=== PATIENT | male | born 1985 | race Hispanic/Latino ===

== ENCOUNTER 2017-10-06 19:24 | Emergency (ER) | payer MEDICAID ==
[2017-10-06] MEDS ORDERED: LIDOCAINE 1% 20 ML MDV ONE (20:30)
[2017-10-06] MEDS ORDERED: DERMABOND SKIN ADHESIVE TOP ONE ×2 (20:30→21:13)
--- NOTE | 2017-10-06 20:52 | RAD REPORT ---
EXAM DESCRIPTION: RAD - Ankle Left 3 View - 10/06/2017 8:41 pm CLINICAL HISTORY: Trip and fall, ankle pain new COMPARISON: None. FINDINGS: No fracture, dislocation or periosteal reaction. No joint effusion seen. No joint space na rrowing. No significant soft tissue swelling. IMPRESSION: Negative left ankle for fracture or other acute finding.
--- NOTE | 2017-10-06 21:22 | EDPHYS ---
Physician Documentation [facility] Name: Chidi Allen Age: 31 yrs Sex: Male : 1985 Arrival Date: 10/06/2017 Time: 19:26 Bed 5 Private MD: ED Physician John Valdovinos HPI: 10/06 21:12 This 31 yrs old Male presents to ER via Wheelchair with complaints of ps1 Laceration. 21:12 The patient has a laceration related to: falling occurred outdoors, The injury was was ps1 out fishing and fell into oyster and barnacles. Has multiple lacerations to lower extremities. notable 3cm laceration to lateral aspect of left tibia. Associated signs and symptoms: Pertinent positives: pain with ambulating and WB left right foot. Historical: - Allergies: 19:56 PENICILLINS; lp1 - Home Meds: 19:56 Adderall XR Oral [Active]; Allopurinol Oral [Active]; Alprazolam Oral [Active]; lp1 Colchicine Oral [Active]; Indomethacin Oral [Active]; - PMHx: 19:56 ADD/ADHD; Anxiety; Gout; lp1 - PSHx: 19:56 None; lp1 - Immunization history:: Adult Immunizations up to date, Last tetanus immunization: < 5 years ago. - Social history:: Smoking status: Patient uses tobacco products, smokes one-half pack cigarettes per day. ROS: 21:12 Constitutional: Negative for fever, chills, and weight loss, Eyes: Negative for injury, ps1 pain, redness, and discharge, Cardiovascular: Negative for chest pain, palpitations, and edema, Respiratory: Negative for shortness of breath, cough, wheezing, and pleuritic chest pain, Abdomen/GI: Negative for abdominal pain, nausea, vomiting, diarrhea, and constipation, Back: Negative for injury and pain. 21:12 MS/extremity: Positive for laceration, pain, swelling. Exam: 21:12 Constitutional: This is a well developed, well nourished patient who is awake, alert, ps1 and in no acute distress. Head/Face: Normocephalic, atraumatic. Eyes: Pupils equal round and reactive to light, extra-ocular motions intact. Lids and lashes normal. Conjunctiva and sclera are non-icteric and not injected. Chest/axilla: Normal chest wall appearance and motion. Nontender with no deformity. No lesions are appreciated. Cardiovascular: Regular rate and rhythm. No gallops, murmurs, or rubs. Normal PMI, no JVD. No pulse deficits. Respiratory: Lungs have equal breath sounds bilaterally, clear to auscultation and percussion. No rales, rhonchi or wheezes noted. No increased work of breathing, no retractions or nasal flaring. Abdomen/GI: Soft, non-tender, with normal bowel sounds. No distension or tympany. No guarding or rebound. No evidence of tenderness throughout. Skin: Warm, dry with normal turgor. Normal color with no rashes, no lesions, and no evidence of cellulitis. 21:12 Musculoskeletal/extremity: Extremities: grossly normal except: noted in the right leg: laceration, pain, tenderness, noted in the left heel: abrasion, laceration. Vital Signs: 19:56 BP 126 / 83; Pulse 86; Resp 18; Temp 99(TE); Pulse Ox 97% on R/A; Weight 122.92 kg; lp1 Height 5 ft. 10 in. (177.80 cm); Pain 8/10; 19:56 Body Mass Index 38.88 (122.92 kg, 177.80 cm) lp1 Laceration: 21:12 Wound Repair of 3cm ( 1.2in ) subcutaneous laceration to right leg. Irregularly ps1 shaped.. Skin/tissue flap noted.. Distal neuro/vascular/tendon intact. Anesthesia: Local anesthetic administered with 2 mls of 1% lidocaine. Wound prep: Moderate cleansing with hibiclenz by nurse, Wound irrigation with saline, Wound explored minimally, Copious irrigation. Skin closed with 4 5-0 Prolene using simple sutures and sterile technique. Dressed with Bacitracin, 4x4's, tube gauze. Patient tolerated well. MDM: 20:27 Patient medically screened. ps1 21:12 Data reviewed: vital signs, nurses notes. ED course: doxy for marine coverage. 7 days ps1 for suture removal. . 21:22 ED course: laceration repaired. Normal barr test. Achillies appears intact. WBAT. ps1 Motrin per patient request. . 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 Exp: la1 10/20/2019. Lot #: [id number]. } Route: IM; Site: right deltoid; 21:35 Follow up: Response: No adverse reaction la1 21:35 Drug: Doxycycline 100 mg Route: PO; la1 21:35 Follow up: Response: Medication administered at discharge. la1 Disposition: 10/06/17 21:21 Discharged to Home. Impression: Laceration of right leg. Multiple abrasions. Fall in marine environment. . - Condition is Stable. - Discharge Instructions: Laceration Care, Adult, [id number]. - Prescriptions for Doxycycline Hyclate 100 mg Oral Tablet - take 1 tablet by ORAL route every 12 hours; 20 tablet. - Medication Reconciliation Form, Thank You Letter, Antibiotic Education, Prescription Opioid Use form. - Follow up: Private Physician; When: 7 - 10 days; Reason: Recheck today's complaints, Continuance of care, Staple/Suture removal, Re-evaluation by your physician. Follow up: Emergency Department; When: As needed; Reason: Fever > 102 F, Worsening of condition. - Problem is new. - Symptoms have improved. Signatures: Dispatcher [employer] [facility] Patria Allen RN RN lp1 Daniele Hawthorne RN RN la1 John Valdovinos MD MD ps1
--- NOTE | 2017-10-06 21:22 | ER ---
Nurse's Notes [facility] Emergency [facility] Name: Chidi Allen Age: 31 yrs Sex: Male : 1985 Arrival Date: 10/06/2017 Time: 19:26 Bed 5 Private MD: Diagnosis: Laceration of right leg. Multiple abrasions. Fall in marine environment. Presentation: 10/06 19:53 Presenting complaint: Patient states: [place], tripped and fell in an lp1 oyster reef, small lacerations to bilateral feet, unable to bear weight to left ankle, large laceration to right lateral lower leg, bleeding controlled. Transition of care: patient was not received from another setting of care. Complicating Factors: There are no complicating factors for this patient. Onset of symptoms was October 06, 2017 at 19:00. Initial Sepsis Screen: Does the patient meet any 2 criteria? No. Patient's initial sepsis screen is negative. Does the patient have a suspected source of infection? No. Patient's initial sepsis screen is negative. Note bleeding controlled during triage. Care prior to arrival: None. 19:53 Method Of Arrival: Wheelchair lp1 19:53 Acuity: CHERRIE 4 lp1 Historical: - Allergies: 19:56 PENICILLINS; lp1 - Home Meds: 19:56 Adderall XR Oral [Active]; Allopurinol Oral [Active]; Alprazolam Oral [Active]; lp1 Colchicine Oral [Active]; Indomethacin Oral [Active]; - PMHx: 19:56 ADD/ADHD; Anxiety; Gout; lp1 - PSHx: 19:56 None; lp1 - Immunization history:: Adult Immunizations up to date, Last tetanus immunization: < 5 years ago. - Social history:: Smoking status: Patient uses tobacco products, smokes one-half pack cigarettes per day. Screenin:23 Abuse screen: Denies threats or abuse. Nutritional screening: No deficits noted. la1 Tuberculosis screening: No symptoms or risk factors identified. Fall Risk None identified. Assessment: 20:22 Reassessment: abrasions and lacerations noted to rolly feet. laceration to back of left la1 heel and pressure dressing applied to laceration to RLE. General: Appears in no apparent distress. Behavior is calm, cooperative. Pain: Complains of pain in right foot and left foot. Neuro: Level of Consciousness is awake, alert, obeys commands, Oriented to person, place, time, situation. Cardiovascular: Capillary refill < 3 seconds Patient's skin is warm and dry. Respiratory: Airway is patent Respiratory effort is even, unlabored, Respiratory pattern is regular, symmetrical. GI: No signs and/or symptoms were reported involving the gastrointestinal system. : No signs and/or symptoms were reported regarding the genitourinary system. Musculoskeletal: Circulation, motion, and sensation intact. Capillary refill < 3 seconds, is brisk, in bilateral fingers. 20:59 Reassessment: Wounds all cleaned extensively with saline and chlorhexidine. la1 21:35 Injury Description: Laceration sustained to right leg is contaminated, jagged, 0.5 to la1 2.5 cm long, not bleeding. Vital Signs: 19:56 BP 126 / 83; Pulse 86; Resp 18; Temp 99(TE); Pulse Ox 97% on R/A; Weight 122.92 kg; lp1 Height 5 ft. 10 in. (177.80 cm); Pain 8/10; 19:56 Body Mass Index 38.88 (122.92 kg, 177.80 cm) lp1 ED Course: 19:26 Patient arrived in ED. ds1 19:55 Triage completed. lp1 19:55 Arm band placed on left wrist. lp1 20:20 John Valdovinos MD is Attending Physician. ps1 20:20 Daniele Hawthorne, ELIZ is Primary Nurse. la1 20:24 Call light in reach. la1 20:39 X-ray completed. Portable x-ray completed in exam room. Patient tolerated procedure kc2 well. 20:40 Ankle Left 3 View XRAY In Process Unspecified. EDMS 21:35 No provider procedures requiring assistance completed. Patient did not have IV access la1 during this emergency room visit. 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 Exp: la1 10/20/2019. Lot #: [id number]. } Route: IM; Site: right deltoid; 21:35 Follow up: Response: No adverse reaction la1 21:35 Drug: Doxycycline 100 mg Route: PO; la1 21:35 Follow up: Response: Medication administered at discharge. la1 Outcome: 21:21 Discharge ordered by . ps1 21:36 Discharged to home ambulatory. la1 21:36 Condition: stable 21:36 Discharge instructions given to patient, Instructed on discharge instructions, follow up and referral plans. Demonstrated understanding of instructions, follow-up care, medications, Prescriptions given X 1. 21:37 Patient left the ED. la1 Signatures: Dispatcher [employer] [facility] Venessa Castillo ds1 Patria Allen RN RN lp1 Daniele Hawthorne RN RN la1 Millie Huerta 2 John Valdovinos MD MD ps1 Corrections: (The following items were deleted from the chart) 19:58 19:56 Pulse 86bpm; Resp 18bpm; Pulse Ox 97% RA; Temp 99F Temporal; 122.92 kg; Height 5 lp1 ft. 10 in.; BMI: 38.8; Pain 8/10; lp1
[2017-10-06] MEDS ORDERED: DOXYCYCLINE 100 MG CAP PO ONE (21:30)
[2017-10-06 22:02] VITALS: BP 126/83; TEMP 99; O2SAT 97
== END 2017-10-06 21:37 | disposition home or self-care (01) ==
LOC: ER 19:24
PROC: 0JQN0ZZ Repair Right Lower Leg Subcutaneous Tissue and Fascia, Open Approach (ICD-10-PCS; principal; 2017-10-06)
DX: S81.811A Laceration without foreign body, right lower leg, initial encounter (principal); W17.89XA Other fall from one level to another, initial encounter; Y93.89 Activity, other specified; Y92.89 Other specified places as the place of occurrence of the external cause; F90.9 Attention-deficit hyperactivity disorder, unspecified type; F17.210 Nicotine dependence, cigarettes, uncomplicated; Z88.0 Allergy status to penicillin
CPT/HCPCS: 99283

== ENCOUNTER 2017-10-08 12:53 | Emergency (ER) | payer MEDICAID ==
--- NOTE | 2017-10-08 13:44 | EDPHYS ---
Physician Documentation [facility] Name: hCidi Allen Age: 31 yrs Sex: Male : 1985 Arrival Date: 10/08/2017 Time: 12:56 Bed 23 Private MD: ED Physician Omid Chen HPI: 10/08 13:38 This 31 yrs old Male presents to ER via Wheelchair with complaints of Infected jr8 Wound. 13:38 the patient presents with a swollen area of the left foot. Description: The affected jr8 area is moderate sized, erythematous, swollen, warm. Onset: The symptoms/episode began/occurred acutely, yesterday. Possible cause(s): marine life cut. Associated signs and symptoms: The patient has no apparent associated signs or symptoms. Modifying factors: the symptoms are alleviated by nothing, the symptoms are aggravated by squeezing the lesion and expressing the contents, touching. Severity of symptoms: At their worst the symptoms were moderate, in the emergency department the symptoms are unchanged. The patient has not experienced similar symptoms in the past. The patient has been recently seen by a physician:. Patient was seen here a couple of days ago for cuts on legs and feet from oyster beds. Stated that he was unable to fill antibiotics due to insurance authorization. Told pharmacy to call us but that they wouldn't. Came to ED today because foot is now swelling and is red . Historical: - Allergies: 13:22 PENICILLINS; hb - Home Meds: 13:22 Adderall XR Oral [Active]; Allopurinol Oral [Active]; Alprazolam Oral [Active]; hb Colchicine Oral [Active]; Indomethacin Oral [Active]; - PMHx: 13:22 ADD/ADHD; Anxiety; Gout; hb - PSHx: 13:22 None; hb - Immunization history:: Adult Immunizations up to date. - Social history:: Smoking status: Patient/guardian denies using tobacco. ROS: 13:38 Eyes: Negative for injury, pain, redness, and discharge, ENT: Negative for injury, jr8 pain, and discharge, Neck: Negative for injury, pain, and swelling, Cardiovascular: Negative for chest pain, palpitations, and edema, Respiratory: Negative for shortness of breath, cough, wheezing, and pleuritic chest pain, Abdomen/GI: Negative for abdominal pain, nausea, vomiting, diarrhea, and constipation, Back: Negative for injury and pain, MS/Extremity: Negative for injury and deformity, Neuro: Negative for headache, weakness, numbness, tingling, and seizure. 13:38 Skin: Positive for erythema, swelling, of the left foot. Exam: 13:38 Eyes: Pupils equal round and reactive to light, extra-ocular motions intact. Lids and jr8 lashes normal. Conjunctiva and sclera are non-icteric and not injected. Cornea within normal limits. Periorbital areas with no swelling, redness, or edema. ENT: Nares patent. No nasal discharge, no septal abnormalities noted. Tympanic membranes are normal and external auditory canals are clear. Oropharynx with no redness, swelling, or masses, exudates, or evidence of obstruction, uvula midline. Mucous membranes moist. Neck: Trachea midline, no thyromegaly or masses palpated, and no cervical lymphadenopathy. Supple, full range of motion without nuchal rigidity, or vertebral point tenderness. No Meningismus. Cardiovascular: Regular rate and rhythm with a normal S1 and S2. No gallops, murmurs, or rubs. Normal PMI, no JVD. No pulse deficits. Respiratory: Lungs have equal breath sounds bilaterally, clear to auscultation and percussion. No rales, rhonchi or wheezes noted. No increased work of breathing, no retractions or nasal flaring. Abdomen/GI: Soft, non-tender, with normal bowel sounds. No distension or tympany. No guarding or rebound. No evidence of tenderness throughout. Back: No spinal tenderness. No costovertebral tenderness. Full range of motion. MS/ Extremity: Pulses equal, no cyanosis. Neurovascular intact. Full, normal range of motion. Neuro: Awake and alert, GCS 15, oriented to person, place, time, and situation. Cranial nerves II-XII grossly intact. Motor strength 5/5 in all extremities. Sensory grossly intact. Cerebellar exam normal. Normal gait. 13:38 Skin: Patient has swelling and erythema to medial aspect left foot from mid foot down through first digit. Serous drainage of wound noted. Mild tenderness to palpation. Other wounds intact and without erythema . Vital Signs: 13:20 BP 128 / 80; Pulse 81; Resp 16; Temp 97.9; Pulse Ox 97% on R/A; Weight 122.92 kg; hb Height 5 ft. 10 in. (177.80 cm); Pain 4/10; 13:54 BP 116 / 69; Pulse 80; Resp 20; Temp 98.6; Pulse Ox 95% ; Pain 2/10; tt1 13:20 Body Mass Index 38.88 (122.92 kg, 177.80 cm) hb MDM: 13:23 Patient medically screened. jr8 13:38 Data reviewed: vital signs, nurses notes, and as a result, I will discharge patient. jr8 Data interpreted: Pulse oximetry: on room air is 97 %. Interpretation: normal. Counseling: I had a detailed discussion with the patient and/or guardian regarding: the historical points, exam findings, and any diagnostic results supporting the discharge/admit diagnosis, the need for outpatient follow up, a family practitioner, to return to the emergency department if symptoms worsen or persist or if there are any questions or concerns that arise at home. 13:43 ED course: Explained to patient to go to pharmacy and have them call me so I can figure jrTiffany out why they will not fill his doxy. If need be will change to levaquin along with clindamycin if they will not fill doxy for insurance purposes . Administered Medications: 13:49 Drug: Clindamycin 300 mg Route: PO; tl3 16:59 Follow up: Response: No adverse reaction tl3 13:49 Drug: Doxycycline 100 mg Route: PO; tl3 16:59 Follow up: Response: No adverse reaction tl3 Disposition: 18:56 Co-signature as Attending Physician, Omid Chen MD. Disposition: 10/08/17 13:43 Discharged to Home. Impression: Cellulitis of left lower limb - foot. - Condition is Stable. - Discharge Instructions: Cellulitis. - Prescriptions for Clindamycin HCl 300 mg Oral Capsule - take 1 capsule by ORAL route every 6 hours for 10 days; 40 capsule. - Medication Reconciliation Form, Thank You Letter, Antibiotic Education, Prescription Opioid Use form. - Follow up: Private Physician; When: 2 - 3 days; Reason: Wound Recheck, Recheck today's complaints, Continuance of care, Re-evaluation by your physician. - Problem is new. - Symptoms have improved. - Notes: Signatures: Endy Morse PA PA jr8 Juanita Garay RN RN Omid Chen MD MD Ivory Ayala, RN RN tl3
--- NOTE | 2017-10-08 13:44 | ER ---
Nurse's Notes [facility] Name: Chidi Allen Age: 31 yrs Sex: Male : 1985 Arrival Date: 10/08/2017 Time: 12:56 Bed 23 Private MD: Diagnosis: Cellulitis of left lower limb-foot Presentation: 10/08 13:18 Presenting complaint: Patient states: I was here after I cut my feet and legs on an hb oyster reef 2 days ago, and I was unable to get my antibiotics filled. Today I see yellow-green drainage and swelling. Transition of care: patient was not received from another setting of care. Onset of symptoms is unknown. Initial Sepsis Screen: Does the patient meet any 2 criteria? No. Patient's initial sepsis screen is negative. Does the patient have a suspected source of infection? No. Patient's initial sepsis screen is negative. Care prior to arrival: Medication(s) given: Motrin, at 0700 today. 13:18 Method Of Arrival: Wheelchair hb 13:18 Acuity: CHERRIE 3 hb Historical: - Allergies: 13:22 PENICILLINS; hb - Home Meds: 13:22 Adderall XR Oral [Active]; Allopurinol Oral [Active]; Alprazolam Oral [Active]; hb Colchicine Oral [Active]; Indomethacin Oral [Active]; - PMHx: 13:22 ADD/ADHD; Anxiety; Gout; hb - PSHx: 13:22 None; hb - Immunization history:: Adult Immunizations up to date. - Social history:: Smoking status: Patient/guardian denies using tobacco. Screenin:29 Abuse screen: Denies threats or abuse. Nutritional screening: No deficits noted. tl3 Tuberculosis screening: No symptoms or risk factors identified. Fall Risk None identified. Assessment: 13:29 General: Appears in no apparent distress. comfortable, obese, well groomed, well tl3 developed, well nourished, Behavior is calm, cooperative, appropriate for age. Pain: Complains of pain in right foot and left foot. Neuro: Level of Consciousness is awake, alert, obeys commands, Oriented to person, place, time, situation, Appropriate for age. Cardiovascular: Heart tones S1 S2 present Capillary refill < 3 seconds in bilateral toes. Respiratory: Breath sounds are clear bilaterally. GI: No signs and/or symptoms were reported involving the gastrointestinal system. : No signs and/or symptoms were reported regarding the genitourinary system. EENT: No signs and/or symptoms were reported regarding the EENT system. Derm: Reports pt was seen here a couple of days ago, got one dose before discharge but unable to fill antibiotics due to rejection from insurance company, wounds are red and warm to touch. Musculoskeletal: No signs and/or symptoms reported regarding the musculoskeletal system. 14:00 Reassessment: No changes from previously documented assessment. Patient and/or family tl3 updated on plan of care and expected duration. Pain level reassessed. Patient is alert, oriented x 3, equal unlabored respirations, skin warm/dry/pink. Vital Signs: 13:20 BP 128 / 80; Pulse 81; Resp 16; Temp 97.9; Pulse Ox 97% on R/A; Weight 122.92 kg; hb Height 5 ft. 10 in. (177.80 cm); Pain 4/10; 13:54 BP 116 / 69; Pulse 80; Resp 20; Temp 98.6; Pulse Ox 95% ; Pain 2/10; tt1 13:20 Body Mass Index 38.88 (122.92 kg, 177.80 cm) hb ED Course: 12:56 Patient arrived in ED. mr 13:20 Triage completed. hb 13:20 Arm band placed on right wrist. hb 13:23 Ivory Ayala, ELIZ is Primary Nurse. tl3 13:23 Endy Morse PA is PHCP. jr8 13:23 Omid Chen MD is Attending Physician. jr8 13:29 Patient has correct armband on for positive identification. tl3 13:29 Assist provider with bone marrow aspiration. Patient did not have IV access during this tl3 emergency room visit. 14:00 Dressings: 4X4s yomi wrap. tl3 Administered Medications: 13:49 Drug: Clindamycin 300 mg Route: PO; tl3 16:59 Follow up: Response: No adverse reaction tl3 13:49 Drug: Doxycycline 100 mg Route: PO; tl3 16:59 Follow up: Response: No adverse reaction tl3 Outcome: 13:43 Discharge ordered by . jr8 14:00 Discharged to home via wheelchair. tl3 14:00 Condition: stable 14:00 Discharge instructions given to patient, Instructed on discharge instructions, follow up and referral plans. medication usage, Demonstrated understanding of instructions, follow-up care, medications, Prescriptions given X 1. 14:02 Patient left the ED. tl3 Signatures: Diamond Sullivan Josh, PA PA jr8 Selina Price tt1 Juanita Garay, RN RN Ivory Ayala RN RN tl3
[2017-10-08] MEDS ORDERED: DOXYCYCLINE 100 MG CAP PO ONE (13:47)
[2017-10-08] MEDS ORDERED: CLINDAMYCIN HCL 150 MG CAP ONE (13:47)
[2017-10-08 14:09] VITALS: BP 116/69; TEMP 98.6; O2SAT 95
== END 2017-10-08 14:02 | disposition home or self-care (01) ==
LOC: ER 12:53
DX: L03.116 Cellulitis of left lower limb (principal); F41.9 Anxiety disorder, unspecified; F90.9 Attention-deficit hyperactivity disorder, unspecified type; Z88.0 Allergy status to penicillin
CPT/HCPCS: 99284

== ENCOUNTER 2018-06-17 08:09 | Emergency (ER) | payer MEDICAID ==
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
[2018-06-17 08:48] VITALS: BP 136/81; TEMP 98.1; O2SAT 99
== END 2018-06-17 08:44 | disposition home or self-care (01) ==
LOC: ER 08:09
DX: M79.18 Myalgia, other site (principal); V49.50XA Passenger injured in collision with unspecified motor vehicles in traffic accident, initial encounter; F90.9 Attention-deficit hyperactivity disorder, unspecified type; F41.9 Anxiety disorder, unspecified; M10.9 Gout, unspecified; Z79.899 Other long term (current) drug therapy
CPT/HCPCS: 99282

== ENCOUNTER 2019-07-29 09:16 | Emergency (ER) | payer MEDICAID, OTHER ==
[2019-07-29 09:52] LABS: Urine Blood 2+ (NEG); Urine Glucose NEGATIVE (NEG); Urine Protein NEGATIVE (NEG)
[2019-07-29 10:28] LABS: Absolute Lymphocytes (CBC) 2.5 K/uL (0.7-4.9); Basophils % 1.1 % (0-1.3); Hematocrit 49.8 % (39.6-49.0); Lymphocytes % 30.7 % (15.3-44.8); MPV 9.2 fL (7.6-11.3)
[2019-07-29 10:43] LABS: Albumin 4.2 g/dL (3.4-5.0); Bilirubin Direct 0.1 mg/dL (0-0.2); Bilirubin Total 0.5 mg/dL (0.2-1.0); Potassium 3.6 mmol/L (3.5-5.1)
--- NOTE | 2019-07-29 10:52 | RAD REPORT ---
EXAM DESCRIPTION: CT - Stone Protocol - 07/29/2019 10:38 am CLINICAL HISTORY: Flank pain. HEMATURIA COMPARISON: CT ABD PELVIS W CONTRAST dated 12/02/2012 TECHNIQUE: Axial images were obtained without oral or IV contrast. Lack of contrast limits solid org an and vascular assessment. The [id number] spans the entirety of the system partially obscuring uppermost abdomen and lung bases. Coronal reformatted images were obtained and reviewed. All CT scans are performed using dose optimization technique as appropriate and may include automated exposure control or mA/KV adjustment according to patient size. FINDINGS: The lower lung martinez are clear. Diffuse fatty liver is noted.Spleen is normal in size. The pancreas and adrenal glands are normal. No pathologic lymphadenopathy in the abdomen or pelvis. Punctate calculi are present in both kidneys. Mild hydronephrosis is present on the right caused by 3 mm stone at the right UVJ. No bowel obstruction, free air, free fluid or abscess. Normal appendix noted. No significant bony abnormality. IMPRESSION: Punctate bilateral nephrolithiasis is seen. Mild right-sided hydronephrosis is present caused by a 3 mm right UVJ stone.
--- NOTE | 2019-07-29 11:56 | ER ---
Nurse's Notes [facility] Name: Chidi Allen Age: 33 yrs Sex: Male : 1985 Arrival Date: 07/29/2019 Time: 09:19 Bed 15 Private MD: Fady Bell E Diagnosis: Calculus of kidney and ureter-right Presentation: 07/29 09:32 Presenting complaint: Patient states: "This morning I woke up with bad stomach pain, ss but it was like my bladder." Pt also c/o urinary frequency and inability to completely empty bladder. Transition of care: patient was not received from another setting of care. Onset of symptoms was July 29, 2019. Risk Assessment: Do you want to hurt yourself or someone else? Patient reports no desire to harm self or others. Initial Sepsis Screen: Does the patient meet any 2 criteria? No. Patient's initial sepsis screen is negative. Does the patient have a suspected source of infection? No. Patient's initial sepsis screen is negative. Care prior to arrival: None. 09:32 Method Of Arrival: Ambulatory ss 09:32 Acuity: CHERRIE 3 ss Triage Assessment: 09:35 General: Appears in no apparent distress. comfortable, obese, Behavior is cooperative, bp appropriate for age, anxious. Pain: Complains of pain in anterior aspect of right lateral abdomen. EENT: No deficits noted. Neuro: No deficits noted. Cardiovascular: No deficits noted. Respiratory: No deficits noted. GI: No signs and/or symptoms were reported involving the gastrointestinal system. : Reports urgency. Derm: No deficits noted. Musculoskeletal: No deficits noted. Historical: - Allergies: 09:35 PENICILLINS; ss - PMHx: 09:35 ADD/ADHD; Anxiety; Gout; ss - PSHx: 09:35 ankle; ss - Immunization history:: Adult Immunizations up to date. - Coronavirus screen:: The patient has NOT traveled to [place] in the past 14 days. Proceed with normal triage process as indicated. - Social history:: Smoking status: Patient denies any tobacco usage or history of. - Ebola Screening: : Patient denies exposure to infectious person Patient denies travel to an Ebola-affected area in the 21 days before illness onset. Screenin:35 Abuse screen: Denies threats or abuse. Denies injuries from another. Nutritional bp screening: No deficits noted. Tuberculosis screening: No symptoms or risk factors identified. Fall Risk None identified. Assessment: 10:29 Reassessment: BLADDER SCAN 160ML PRE-VOID AND 0ML POST-VOID. bp 11:30 Pain: Complains of pain in anterior aspect of right lateral abdomen. GI: Bowel sounds bp present X 4 quads. Abd is soft X 4 quads. : Reports urinary frequency. 12:00 Reassessment: D/C ON HOLD FOR IVF. bp 12:59 Reassessment: IV NS INFUSING. PT STATES PAIN DECREASED BUT NO CHANGE IN URINARY bp URGENCY/FREQUENCY. 13:39 Reassessment: IVF COMPLETED. PT D/C HOME AMBULATORY, DX WITH KIDNEY STONES Patient bp denies pain at this time. Vital Signs: 09:35 BP 138 / 93; Pulse 84; Resp 15; Temp 98.3(O); Pulse Ox 97% on R/A; Weight 129.27 kg; ss Height 5 ft. 10 in. (177.80 cm); Pain 6/10; 12:00 BP 122 / 78; Pulse 91; Resp 16; Pulse Ox 96% ; bp 13:00 BP 125 / 81; Pulse 89; Resp 16; Pulse Ox 97% ; bp 13:39 BP 129 / 95; Pulse 87; Resp 16; Pulse Ox 99% ; bp 09:35 Body Mass Index 40.89 (129.27 kg, 177.80 cm) ED Course: 09:19 Patient arrived in ED. ag5 09:19 Fady Bell MD is Private Physician. ag5 09:35 Triage completed. ss 09:35 Arm band placed on left wrist. ss 09:35 Patient has correct armband on for positive identification. Bed in low position. Call bp light in reach. Side rails up X2. 09:50 Carmine Collins PA is PHCP. cp 09:50 Carmine Avila MD is Attending Physician. cp 09:54 Antonio Vasquez, ELIZ is Primary Nurse. bp 10:18 Inserted saline lock: 20 gauge in right antecubital area, using aseptic technique. bp Blood collected. 11:54 Johnathan Cooney MD is Referral Physician. cp 13:39 No provider procedures requiring assistance completed. IV discontinued, intact, bp bleeding controlled, No redness/swelling at site. Pressure dressing applied. Administered Medications: 12:00 Drug: Flomax 0.4 mg Route: PO; bp 13:41 Follow up: Response: No adverse reaction bp 12:00 Drug: TORadol - Ketorolac 15 mg Route: IVP; Site: right antecubital; bp 13:42 Follow up: Response: Pain is decreased bp 12:00 Drug: NS 0.9% 1000 ml Route: IV; Rate: 1 bolus; Site: right antecubital; bp 13:41 Follow up: IV Status: Completed infusion; IV Intake: 1000ml bp Intake: 13:41 IV: 1000ml; Total: 1000ml. bp Outcome: 11:55 Discharge ordered by MD. cp 13:39 Discharged to home ambulatory. bp 13:39 Condition: stable 13:39 Discharge instructions given to patient, Instructed on discharge instructions, follow up and referral plans. medication usage, Demonstrated understanding of instructions, follow-up care, medications, Prescriptions given X 3. 13:42 Patient left the ED. bp Signatures: Nisha Hernandez RN RN ss Carmine Collins PA PA Antonio Cruz RN RN bp Costa Castro ag5
--- NOTE | 2019-07-29 11:56 | EDPHYS ---
Physician Documentation [facility] Name: Chidi Allen Age: 33 yrs Sex: Male : 1985 Arrival Date: 07/29/2019 Time: 09:19 Bed 15 Private MD: Fady Bell E ED Physician Carmine Avila HPI: 07/29 10:05 This 33 yrs old Male presents to ER via Ambulatory with complaints of cp Abdominal Pain. 10:05 The patient presents with abdominal pain suprapubic area. Onset: The symptoms/episode cp began/occurred yesterday. The symptoms do not radiate. Associated signs and symptoms: Pertinent positives: urinary frequency, Pertinent negatives: constipation, diarrhea, fever, testicular pain, vomiting. Historical: - Allergies: 09:35 PENICILLINS; ss - PMHx: 09:35 ADD/ADHD; Anxiety; Gout; ss - PSHx: 09:35 ankle; ss - Immunization history:: Adult Immunizations up to date. - Coronavirus screen:: The patient has NOT traveled to [place] in the past 14 days. Proceed with normal triage process as indicated. - Social history:: Smoking status: Patient denies any tobacco usage or history of. - Ebola Screening: : Patient denies exposure to infectious person Patient denies travel to an Ebola-affected area in the 21 days before illness onset. ROS: 10:10 Constitutional: Negative for body aches, chills, fever, poor PO intake. cp 10:10 Eyes: Negative for injury, pain, redness, and discharge. cp 10:10 Cardiovascular: Negative for chest pain. cp 10:10 Respiratory: Negative for cough, shortness of breath, wheezing. cp 10:10 Abdomen/GI: Positive for abdominal pain, of the suprapubic area and right lower quadrant, Negative for vomiting, diarrhea, constipation. 10:10 Back: Negative for pain at rest, pain with movement. 10:10 : Positive for urinary frequency, Negative for burning with urination, testicular pain 10:10 Skin: Negative for rash. 10:10 All other systems are negative. Exam: 10:20 Constitutional: The patient appears in no acute distress, alert, awake, non-toxic, well cp developed, well nourished. 10:20 Head/Face: Normocephalic, atraumatic. cp 10:20 Eyes: Periorbital structures: appear normal, Conjunctiva: normal, no exudate, no injection, Sclera: no appreciated abnormality, Lids and lashes: appear normal, bilaterally. 10:20 ENT: External ear(s): are unremarkable, Nose: is normal, Mouth: Lips: moist, Oral mucosa: moist, Posterior pharynx: is normal, airway is patent, no erythema, no exudate. 10:20 Chest/axilla: Inspection: normal, Palpation: is normal, no crepitus, no tenderness. 10:20 Cardiovascular: Rate: normal, Rhythm: regular. 10:20 Respiratory: the patient does not display signs of respiratory distress, Respirations: normal, no use of accessory muscles, no retractions, labored breathing, is not present. 10:20 Abdomen/GI: Inspection: abdomen appears normal, Bowel sounds: active, all quadrants, Palpation: soft, in all quadrants, mild abdominal tenderness, in the suprapubic area and right lower quadrant, rebound tenderness, is not appreciated, voluntary guarding, is elicited in the suprapubic area, involuntary guarding, is not appreciated. 10:20 Back: CVA tenderness, is absent. 10:20 : Male external genitalia: tenderness, is not appreciated. 10:20 Skin: no rash present. Vital Signs: 09:35 BP 138 / 93; Pulse 84; Resp 15; Temp 98.3(O); Pulse Ox 97% on R/A; Weight 129.27 kg; ss Height 5 ft. 10 in. (177.80 cm); Pain 6/10; 12:00 BP 122 / 78; Pulse 91; Resp 16; Pulse Ox 96% ; bp 13:00 BP 125 / 81; Pulse 89; Resp 16; Pulse Ox 97% ; bp 13:39 BP 129 / 95; Pulse 87; Resp 16; Pulse Ox 99% ; bp 09:35 Body Mass Index 40.89 (129.27 kg, 177.80 cm) ss MDM: 09:58 Patient medically screened. josie 10:20 Differential diagnosis: appendicitis, diverticulitis, non-specific abd pain, Testicular cp Torsion, Ureterolithiasis, urinary tract infection. 11:55 Data reviewed: vital signs, nurses notes, lab test result(s), radiologic studies, CT cp scan. 11:55 Counseling: I had a detailed discussion with the patient and/or guardian regarding: the cp historical points, exam findings, and any diagnostic results supporting the discharge/admit diagnosis, lab results, radiology results, to return to the emergency department if symptoms worsen or persist or if there are any questions or concerns that arise at home. Response to treatment: the patient's symptoms have markedly improved after treatment, and as a result, I will discharge patient. 07/29 09:48 Order name: Urine Dipstick--Ancillary (enter results) 07/29 09:52 Order name: Urine Dipstick-Ancillary; Complete Time: 10:05 EDCO 07/29 10:05 Interpretation: Normal except: UBLD 2+. 07/29 10:05 Order name: Basic Metabolic Panel 07/29 10:05 Order name: CBC with Diff 07/29 10:05 Order name: Creatinine for Radiology 07/29 10:05 Order name: Hepatic Function 07/29 10:05 Order name: Lipase 07/29 10:07 Order name: CT Stone Protocol 07/29 10:33 Order name: CBC with Automated Diff; Complete Time: 11:12 EDCO 07/29 11:12 Interpretation: Normal except: HCT 49.8. 07/29 10:44 Order name: Basic Metabolic Panel; Complete Time: 11:12 EDCO 07/29 11:12 Interpretation: Normal except: GLUC 128; GFR 88. 07/29 10:44 Order name: Liver (Hepatic) Function; Complete Time: 11:12 EDCO 07/29 11:13 Interpretation: Normal except: AST 50; ALT 121; ALK 138; GLOB 3.8. 07/29 10:44 Order name: Lipase; Complete Time: 11:12 EDCO 07/29 10:45 Order name: Creatinine (Radiology Only); Complete Time: 11:12 EDCO 07/29 11:41 Order name: CT; Complete Time: 11:44 EDCO 07/29 10:05 Order name: IV Saline Lock; Complete Time: 10:26 07/29 10:05 Order name: Labs collected and sent; Complete Time: 10:26 07/29 10:05 Order name: Bladder Scanner: pre and post void; Complete Time: 10:26 07/29 11:43 Order name: Urine Strainer; Complete Time: 12:03 cp Administered Medications: 12:00 Drug: Flomax 0.4 mg Route: PO; bp 13:41 Follow up: Response: No adverse reaction bp 12:00 Drug: TORadol - Ketorolac 15 mg Route: IVP; Site: right antecubital; bp 13:42 Follow up: Response: Pain is decreased bp 12:00 Drug: NS 0.9% 1000 ml Route: IV; Rate: 1 bolus; Site: right antecubital; bp 13:41 Follow up: IV Status: Completed infusion; IV Intake: 1000ml bp Disposition: 16:37 Co-signature as Attending Physician, Carmine Avila MD I agree with the assessment and [facility] plan of care. Disposition: 07/29/19 11:55 Discharged to Home. Impression: Calculus of kidney and ureter - right. - Condition is Stable. - Discharge Instructions: Kidney Stones. - Prescriptions for Zofran 4 mg Oral Tablet - take 1 tablet by ORAL route every 12 hours As needed; 20 tablet. Flomax 0.4 mg Oral Capsule, Sust. Release 24 hr - take 1 capsule by ORAL route once daily As needed 1/2 hour following the same meal each day; 5 capsule. Tramadol 50 mg Oral Tablet - take 1 tablet by ORAL route every 8 hours as needed; 20 tablet. - Medication Reconciliation Form, Thank You Letter, Antibiotic Education, Prescription Opioid Use form. - Follow up: Johnathan Cooney MD; When: 2 - 3 days; Reason: pain continues. - Problem is new. - Symptoms have improved. Signatures: Dispatcher [employer] EDCarmine Dodge MD MD cha Smirch, Shelby, RN RN Carmine Collins PA PA cp Peltier, Brian RN RN bp Corrections: (The following items were deleted from the chart) 13:42 11:55 07/29/2019 11:55 Discharged to Home. Impression: Calculus of kidney and ureter - bp right. Condition is Stable. Forms are Medication Reconciliation Form, Thank You Letter, Antibiotic Education, Prescription Opioid Use. Follow up: Johnathan Cooney; When: 2 - 3 days; Reason: pain continues. Problem is new. Symptoms have improved. cp
[2019-07-29] MEDS ORDERED: NA CHLORIDE 0.9% 1,000 ML ONE (11:58)
[2019-07-29] MEDS ORDERED: KETOROLAC 30 MG/ML INJ ONE (11:58)
[2019-07-29] MEDS ORDERED: TAMSULOSIN 0.4 MG SR CAP ONE (11:58)
[2019-07-29 13:48] VITALS: TEMP 98.3
[2019-07-29 14:09] VITALS: BP 129/95; O2SAT 99
== END 2019-07-29 13:42 | disposition home or self-care (01) ==
LOC: ER 09:16
DX: N20.2 Calculus of kidney with calculus of ureter (principal); Z88.0 Allergy status to penicillin
CPT/HCPCS: 96361; 85025; 80048; 36415; 80076; 81003; 83690; 76377; 74176; 96374; 99284; J7030

== ENCOUNTER 2021-03-05 12:34 | Emergency (ER) | payer OTHER ==
--- NOTE | 2021-03-05 14:20 | RAD REPORT ---
EXAM DESCRIPTION: RAD - Foot Left 3 View - 03/05/2021 2:13 pm CLINICAL HISTORY: PAIN COMPARISON: No comparisons FINDINGS: No acute fracture. No malalignment. No significant focal degenerative changes. IMPRESSION: No acute osseous abnormality involving the left foot. No radiopaque foreign bodies.
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
[2021-03-05] MEDS ORDERED: SMZ./TMP. 800/160 MG TABLET ONE (15:59)
[2021-03-05 16:10] VITALS: BP 133/93; TEMP 99; O2SAT 100
== END 2021-03-05 15:43 | disposition home or self-care (01) ==
LOC: ER 12:34
DX: L08.9 Local infection of the skin and subcutaneous tissue, unspecified (principal); Z88.0 Allergy status to penicillin
CPT/HCPCS: 99284

== ENCOUNTER 2021-04-27 10:42 | Emergency (ER) | payer OTHER ==
[2021-04-27 11:28] LABS: Urine Blood 3+ (Negative); Urine Glucose Negative (Negative); Urine Protein Negative (Negative); Urine pH 6.5 (5.0-7.0)
[2021-04-27 11:38] LABS: Basophils % 1.1 % (0-1.3); Hematocrit 47.7 % (39.6-49.0); Lymphocytes % 22.6 % (15.3-44.8); MPV 9.5 fL (7.6-11.3); RBC Red Blood Cell Count 5.26 M/uL (4.33-5.43)
[2021-04-27] MEDS ORDERED: KETOROLAC 30 MG/ML INJ ONE (11:45)
[2021-04-27 11:50] LABS: Potassium 3.8 mmol/L (3.5-5.1)
[2021-04-27 11:55] LABS: Urine Bacteria <20 /HPF (NONE SEEN)
--- NOTE | 2021-04-27 12:11 | RAD REPORT ---
EXAM DESCRIPTION: CTStone Protocol - 04/27/2021 11:51 am CLINICAL HISTORY: FLANK PAIN COMPARISON: Stone Protocol dated 07/29/2019; CT ABD PELVIS W CONTRAST dated 12/02/2012 TECHNIQUE: CT of the abdomen and pelvis was performed. All CT scans are performed using dose optimization technique as appropriate and may include automated exposure control or mA/KV adjustment according to patient size. FINDINGS: Lower chest: No acute abnormality. Liver: Hepatic steatosis. Biliary: No biliary ductal dilatation. Stomach: No significant focal abnormality. Duodenum: No significant focal abnormality. Pancreas: No significant abnormality. Spleen: No significant abnormality. Adrenal: No suspicious lesions. Kidney/ureter: Left ureteral fullness. Nonobstructive bilateral nephrolithiasis. 4 mm stone near the right UVJ. Retroperitoneum: No retroperitoneal adenopathy. Vascular: No aneurysm. Bowel: No significant focal abnormality. Normal appendix. Peritoneum: No ascites or free air. Bladder: Grossly unremarkable. Reproductive: No adnexal masses. Bones: No acute fracture. Other: n/a IMPRESSION: 4 mm stone near the right UVJ, possibly within the bladder. If the patient has left-side d flank pain, this could represent a recently passed stone rather than a right UVJ stone. No hydronep hrosis. Normal appendix.
--- NOTE | 2021-04-27 12:43 | EDPHYS ---
Physician Documentation [facility] Name: Chidi Allen Age: 35 yrs Sex: Male : 1985 Arrival Date: 04/27/2021 Time: 10:43 Bed 13 Private MD: ED Physician Jeffrey Cotto HPI: 04/27 12:13 This 35 yrs old Male presents to ER via Ambulatory with complaints of Possible jr8 Kidney Stone, Nausea. 12:13 A 35-year-old male patient who presented to the emergency room with left-sided flank jr8 pain and nausea that started acutely today. Patient has a history of renal stones in the past and thinks he may have another one. Denies any urinary symptoms or hematuria at this time.. Historical: - Allergies: 11: PENICILLINS; ll1 - PMHx: 11: ADD/ADHD; Anxiety; Gout; ll1 - PSHx: 11: None; ll1 - Immunization history:: Client reports receiving the 2nd dose of the Covid vaccine. - Social history:: Smoking status: Patient reports the use of cigarette tobacco products, smokes one-half pack cigarettes per day. ROS: 12:13 Eyes: Negative for injury, pain, redness, and discharge, ENT: Negative for injury, jr8 pain, and discharge, Neck: Negative for injury, pain, and swelling, Cardiovascular: Negative for chest pain, palpitations, and edema, Respiratory: Negative for shortness of breath, cough, wheezing, and pleuritic chest pain, MS/Extremity: Negative for injury and deformity, Skin: Negative for injury, rash, and discoloration, Neuro: Negative for headache, weakness, numbness, tingling, and seizure. 12:13 Abdomen/GI: Positive for nausea. 12:13 Back: Positive for flank pain, on the left. Exam: 12:13 Constitutional: This is a well developed, well nourished patient who is awake, alert, jr8 and in no acute distress. Cardiovascular: Regular rate and rhythm with a normal S1 and S2. No gallops, murmurs, or rubs. Normal PMI, no JVD. No pulse deficits. Respiratory: Lungs have equal breath sounds bilaterally, clear to auscultation and percussion. No rales, rhonchi or wheezes noted. No increased work of breathing, no retractions or nasal flaring. Abdomen/GI: Soft, non-tender, with normal bowel sounds. No distension or tympany. No guarding or rebound. No evidence of tenderness throughout. Back: No spinal tenderness. No costovertebral tenderness. Full range of motion. Skin: Warm, dry with normal turgor. Normal color with no rashes, no lesions, and no evidence of cellulitis. MS/ Extremity: Pulses equal, no cyanosis. Neurovascular intact. Full, normal range of motion. Neuro: Awake and alert, GCS 15, oriented to person, place, time, and situation. Cranial nerves II-XII grossly intact. Motor strength 5/5 in all extremities. Sensory grossly intact. Cerebellar exam normal. Normal gait. Vital Signs: 11:02 BP 136 / 95; Pulse 82; Resp 18; Temp 97.8; Pulse Ox 98% ; Weight 127.01 kg; Height 5 ll1 ft. 11 in. (180.34 cm); Pain 10/10; 11:59 BP 124 / 84; Pulse 78; Resp 18; Pulse Ox 95% ; jt3 13:23 BP 128 / 83; Pulse 84; Resp 17; Pulse Ox 97% on R/A; jt3 11:02 Body Mass Index 39.05 (127.01 kg, 180.34 cm) ll1 MDM: 11:04 Patient medically screened. jr8 12:14 Data reviewed: vital signs, nurses notes, lab test result(s), radiologic studies, CT jr8 scan. Data interpreted: Pulse oximetry: on room air is 95 %. Interpretation: normal. Counseling: I had a detailed discussion with the patient and/or guardian regarding: the historical points, exam findings, and any diagnostic results supporting the discharge/admit diagnosis, lab results, radiology results, the need for outpatient follow up, a urologist, to return to the emergency department if symptoms worsen or persist or if there are any questions or concerns that arise at home. ED course: Patient felt much better just prior to arrival. Pain was still present and was medicated and now has complete resolution of pain. CT shows recently passed renal stone. Urine shows microscopic hematuria without infection. Remainder of labs stable at this time. Also discussed his glucose levels.. 04/27 11:15 Order name: Urine Microscopic Only; Complete Time: 12:12 jr8 04/27 11:15 Order name: Basic Metabolic Panel; Complete Time: 12:12 8 04/27 11:15 Order name: CBC with Diff; Complete Time: 12:12 8 04/27 11:28 Order name: Urine Dipstick-Ancillary; Complete Time: 11:37 EDSC 04/27 11:37 Order name: CT Stone Protocol; Complete Time: 12:12 8 04/27 11:15 Order name: Urine Dipstick-Ancillary (obtain specimen); Complete Time: 11:41 [facility] 04/27 11:15 Order name: IV Saline Lock; Complete Time: 11:41 jr8 04/27 11:15 Order name: Labs collected and sent; Complete Time: 11:41 jr Administered Medications: 11:47 Not Given (Patient Refused): Ketorolac 15 mg IVP once jt3 Disposition: 16:46 Co-signature as Attending Physician, Jeffrey Cotto MD I agree with the assessment and rn plan of care. Attestation: The patient's history, exam findings, diagnostics, and a summary of any interventions or procedures was reviewed in detail with Endy PAK. Disposition Summary: 04/27/21 12:42 Discharge Ordered Location: Home jr8 Problem: new jr8 Symptoms: have improved jr8 Condition: Stable jr8 Diagnosis - Kidney Stone/ Calculus in bladder jr8 Followup: jr8 - With: Tal Canas MD - When: 2 - 3 days - Reason: Recheck today's complaints, Continuance of care, Re-evaluation by your physician Discharge Instructions: - Discharge Summary Sheet jr8 - Kidney Stones jr8 Forms: - Medication Reconciliation Form jr8 - Thank You Letter jr8 - Antibiotic Education jr8 - Prescription Opioid Use jr8 Prescriptions: - Ibuprofen 800 mg Oral Tablet - take 1 tablet by ORAL route every 12 hours As needed take with food; 20 tablet; jr8 Refills: 0, Product Selection Permitted - Zofran 4 mg Oral Tablet - take 1 tablet by ORAL route every 12 hours As needed; 20 tablet; Refills: 0, jr8 Product Selection Permitted Signatures: Dispatcher MedHoUNM Carrie Tingley HospitalJeffrey Kaufman MD MD rn Roszak, Josh, PA PA jr8 Jam Verde RN RN ll1 TejcVinicio pitts RN jt3
--- NOTE | 2021-04-27 12:43 | ER ---
Nurse's Notes [facility] Name: Chidi Allen Age: 35 yrs Sex: Male : 1985 Arrival Date: 04/27/2021 Time: 10:43 Bed 13 Private MD: Diagnosis: Kidney Stone/ Calculus in bladder Presentation: 04/27 11:02 Chief complaint: Patient states: LLQ/groin pain for 1 day. Feels the need to urinate. + ll1 N/V. States it feels like his last kidney stone. Coronavirus screen: Vaccine status: Patient reports receiving the 2nd dose of the covid vaccine. Client denies travel out of the [place] in the last 14 days. At this time, the client does not indicate any symptoms associated with coronavirus-19. Ebola Screen: Patient denies travel to an Ebola-affected area in the 21 days before illness onset. Initial Sepsis Screen: Does the patient meet any 2 criteria? No. Patient's initial sepsis screen is negative. Does the patient have a suspected source of infection? Yes: Dysuria/Frequency/Urgency/UTI. Risk Assessment: Do you want to hurt yourself or someone else? Patient reports no desire to harm self or others. Onset of symptoms was April 27, 2021. 11:02 Method Of Arrival: Ambulatory ll1 11:02 Acuity: CHERRIE 3 ll1 Historical: - Allergies: 11:01 PENICILLINS; ll1 - PMHx: 11:01 ADD/ADHD; Anxiety; Gout; ll1 - PSHx: 11:01 None; ll1 - Immunization history:: Client reports receiving the 2nd dose of the Covid vaccine. - Social history:: Smoking status: Patient reports the use of cigarette tobacco products, smokes one-half pack cigarettes per day. Screenin:18 Abuse screen: Denies threats or abuse. Denies injuries from another. Nutritional jt3 screening: No deficits noted. Tuberculosis screening: No symptoms or risk factors identified. Fall Risk None identified. Assessment: 11:18 General: Appears in no apparent distress. Behavior is calm, cooperative. Pain: jt3 Complains of pain in abdomen Pain radiates to Left lower abdomen and groin area. Pain currently is 7 out of 10 on a pain scale. Quality of pain is described as sharp. Neuro: No deficits noted. Cardiovascular: No deficits noted. Respiratory: No deficits noted. GI: Bowel sounds present X 4 quads. Abdomen is tender to palpation in left lower quadrant. : Reports urgency, since 0800 this morning. 11:47 Reassessment: Pt. states his pain is better after urinating. Pt. states he does not jt3 need any pain medication at this time. 12:34 Reassessment: Patient is resting in bed currently. jt3 Vital Signs: 11:02 BP 136 / 95; Pulse 82; Resp 18; Temp 97.8; Pulse Ox 98% ; Weight 127.01 kg; Height 5 ll1 ft. 11 in. (180.34 cm); Pain 10/10; 11:59 BP 124 / 84; Pulse 78; Resp 18; Pulse Ox 95% ; jt3 13:23 BP 128 / 83; Pulse 84; Resp 17; Pulse Ox 97% on R/A; jt3 11:02 Body Mass Index 39.05 (127.01 kg, 180.34 cm) ll1 ED Course: 10:43 Patient arrived in ED. as 11:03 Triage completed. ll1 11:03 Arm band placed on Patient placed in an exam room, on a stretcher. ll1 11:04 Endy Morse PA is PHCP. jr8 11:04 Jeffrey Cotto MD is Attending Physician. jr8 11:07 Vinicio Tolbert, ELIZ is Primary Nurse. jt3 11:18 Patient has correct armband on for positive identification. Bed in low position. Call jt3 light in reach. Side rails up X2. Pulse ox on. NIBP on. 11:18 No provider procedures requiring assistance completed. jt3 11:51 CT Stone Protocol In Process Unspecified. EDMS 12:42 Tal Canas MD is Referral Physician. jr8 13:23 IV discontinued, intact, bleeding controlled, No redness/swelling at site. Pressure jt3 dressing applied. Administered Medications: 11:47 Not Given (Patient Refused): Ketorolac 15 mg IVP once jt3 Outcome: 12:42 Discharge ordered by . jr8 13:23 Discharged to home ambulatory. jt3 13:23 Condition: good 13:23 Discharge instructions given to patient, Instructed on discharge instructions, no drinking with medication, Demonstrated understanding of instructions, Prescriptions given X 2. 13:24 Patient left the ED. jt3 Signatures: Dispatcher [employer] Pam Paz Josh, PA PA jr8 Jam Verde RN RN ll1 Vinicio Tolbert RN RN jt3
[2021-04-27 14:20] VITALS: TEMP 97.8
[2021-04-27 14:23] VITALS: BP 128/83; O2SAT 97
== END 2021-04-27 13:24 | disposition home or self-care (01) ==
LOC: ER 10:42
DX: N20.0 Calculus of kidney (principal); N21.0 Calculus in bladder; F17.210 Nicotine dependence, cigarettes, uncomplicated; Z88.0 Allergy status to penicillin
CPT/HCPCS: 36415; 74176; 76377; 80048; 81003; 81015; 85025; 99283

== ENCOUNTER 2021-07-06 10:52 | Inpatient (IN) | payer OTHER ==
[2021-07-06] MEDS ORDERED: MORPHINE 4 MG/ML SYR ONE ×2 (11:47→14:37)
[2021-07-06 11:48] LABS: Absolute Lymphocytes (CBC) 2.8 K/uL (0.7-4.9); Hematocrit 51.8 % (39.6-49.0); Lymphocytes % 30.7 % (15.3-44.8); MPV 9.6 fL (7.6-11.3); RBC Red Blood Cell Count 5.82 M/uL (4.33-5.43)
[2021-07-06] MEDS ORDERED: ONDANSETRON 4 MG/2 ML VIAL ONE ×2 (11:48→14:38)
[2021-07-06] MEDS ORDERED: FAMOTIDINE 20 MG/2 ML VIAL IV ONE (11:48)
[2021-07-06] MEDS ORDERED: NA CHLORIDE 0.9% 1,000 ML ONE ×3 (11:48→15:45)
[2021-07-06 11:52] LABS: Protime INR 1.07
[2021-07-06 12:08] LABS: Albumin 3.9 g/dL (3.4-5.0); Bilirubin Direct 0.2 mg/dL (0-0.2); Bilirubin Total 0.8 mg/dL (0.2-1.0); Magnesium 2.1 mg/dL (1.8-2.4); Potassium 3.7 mmol/L (3.5-5.1); Protein, Total 8.3 g/dL (6.4-8.2)
[2021-07-06 12:10] LABS: Troponin High Sensitivity 7.7 pg/mL (<58.9)
[2021-07-06 12:35] LABS: SARS-COV-2 RT PCR NEGATIVE (NEGATIVE)
--- NOTE | 2021-07-06 12:35 | RAD REPORT ---
EXAM DESCRIPTION: RAD - Chest Single View - 07/06/2021 12:30 pm CLINICAL HISTORY: epigastric pain Chest pain. COMPARISON: CHEST SINGLE VIEW dated 10/30/2013 FINDINGS: Portable technique limits examination quality. The lungs are grossly clear. The heart is normal in size. No displaced fractures. IMPRESSION: No acute intrathoracic process suspected.
--- NOTE | 2021-07-06 12:58 | RAD REPORT ---
EXAM DESCRIPTION: CT - Abdomen Pelvis W Contrast - 07/06/2021 12:47 pm CLINICAL HISTORY: EPIGASTRIC PAIN COMPARISON: CT ABD PELVIS W CONTRAST dated 12/02/2012 TECHNIQUE: Biphasic, helical CT imaging of the abdomen and pelvis was performed following 100 ml non -ionic IV contrast. Sagittal and coronal reformatted images were generated and reviewed. No oral contrast administered. All CT scans are performed using dose optimization technique as appropriate and may include automated exposure control or mA/KV adjustment according to patient size. FINDINGS: No suspicious findings in the lung bases. Liver shows a very pronounced in diffuse fatty infiltration pattern. No focal liver lesion. No portal vein abnormality identifiable. Gallbladder wall appears to be thickened and edematous. No gallstones are seen though stones can be occult on CT imaging. Small amount of pericholecystic fluid is also ugarte spected. There is no biliary tree dilatation. No pancreatic or peripancreatic finding. Spleen is unre markable. Symmetric renal function is seen with no hydronephrosis or suspicious renal mass. No pyelonephritis o r acute parenchymal process. A 17 millimeter cyst is present anterior upper pole of the left kidney. A 10 mm cyst is present in the lateral mid left kidney with 2 smaller cysts in the lower pole. A nono bstructing 4 mm calcification present lower pole left kidney. No urinary bladder abnormality seen. No adrenal abnormalities. Gastric dilatation or gastric wall thickening. No acute GI tract abnormality identifiable. No free a ir, free fluid or inflammatory stranding. No hernia, mass or bulky lymphadenopathy. No suspicious bony findings. IMPRESSION: Gallbladder wall appears thickened/edematous with a small amount of pericholecystic flui d. Gallstones can be occult on CT imaging and correlation is needed with any acute cholecystitis clin ical findings. Follow-up gallbladder sonography can be performed as warranted. No biliary tree dilatation no pancreatic abnormality seen. Pronounced diffuse fatty infiltration pattern in the liver.
[2021-07-06 14:06] LABS: Urine Blood 1+ (Negative); Urine Glucose 2+ (Negative); Urine Protein 2+ (Negative); Urine Specific Gravity >=1.030 (1.005-1.030); Urine pH 5.5 (5.0-7.0)
[2021-07-06] MEDS ORDERED: CEFOXITIN SODIUM 1 GM/VIAL ONE (14:09)
[2021-07-06] MEDS ORDERED: NA CHLORIDE 0.9% 50 ML ONE (14:10)
[2021-07-06] MEDS ORDERED: METRONIDAZOLE 500mg IVPB 500 MG/100 ML BAG IV ONE (14:10)
[2021-07-06 14:35] LABS: Urine Amorphous Sediment 1+ /HPF (NONE SEEN); Urine Bacteria <20 /HPF (NONE SEEN)
--- NOTE | 2021-07-06 14:42 | RAD REPORT ---
EXAM DESCRIPTION: US - Abdomen Exam Limited - 07/06/2021 2:09 pm CLINICAL HISTORY: ABD PAIN COMPARISON: Abdomen Pelvis W Contrast dated 07/06/2021 FINDINGS: Gallbladder appears distended with pericholecystic fluid present. No gallstone is evident. The common bile duct is upper limit of normal measuring 5 mm. The liver demonstrates fatty liver. IMPRESSION: Distended gallbladder seen with pericholecystic fluid. Acalculous cholecystitis may be p resent. No definitive gallstones seen.
[2021-07-06] MEDS ORDERED: HYDROMORPHONE HCL 1 MG/ML INJ ONE ×2 (15:25→15:45)
--- NOTE | 2021-07-06 15:30 | EDPHYS ---
Physician Documentation [facility] Name: Chidi Allen Age: 35 yrs Sex: Male : 1985 Arrival Date: 07/06/2021 Time: 10:54 Bed 26 Private MD: ED Physician Kiley Galvez HPI: 07/06 11:25 This 35 yrs old Male presents to ER via Ambulatory with complaints of Chest cp Pain, Weakness. 11:25 The patient or guardian reports chest pain that is located primarily in the xiphoid cp area. 11:25 The patient presents with abdominal pain in the epigastric area. Onset: The cp symptoms/episode began/occurred yesterday, and became worse this morning. Associated signs and symptoms: Pertinent positives: vomiting, dizziness, general weakness, Pertinent negatives: constipation, diarrhea, fever, shortness of breath, vomiting blood. The symptoms are described as waxing/waning. Historical: - Allergies: 11:14 PENICILLINS; eo2 - PMHx: 11:14 ADD/ADHD; Anxiety; Gout; eo2 - Immunization history:: Client reports receiving the 2nd dose of the Covid vaccine. - Social history:: Smoking status: Patient denies any tobacco usage or history of. Patient/guardian denies using alcohol, street drugs. ROS: 11:30 Constitutional: Negative for body aches, chills, fever, poor PO intake. cp 11:30 Eyes: Negative for injury, pain, redness, and discharge. cp 11:30 Neck: Negative for pain with movement, pain at rest, stiffness. 11:30 Cardiovascular: Positive for chest pain, of the xiphoid area, Negative for edema, palpitations. 11:30 Respiratory: Negative for cough, shortness of breath, wheezing. 11:30 Abdomen/GI: Positive for abdominal pain, nausea, vomiting, of the epigastric area, Negative for diarrhea, constipation. 11:30 Back: Negative for radiated pain. 11:30 Neuro: Positive for dizziness, weakness, Negative for altered mental status, syncope. 11:30 All other systems are negative. Exam: 11:18 ECG was reviewed by the Attending Physician. cp 11:35 Constitutional: The patient appears in no acute distress, alert, awake, cp non-diaphoretic, non-toxic, well developed, well nourished, obese, uncomfortable. 11:35 Head/Face: Normocephalic, atraumatic. cp 11:35 Eyes: Periorbital structures: appear normal, Conjunctiva: normal, no exudate, no injection, Sclera: no appreciated abnormality, Lids and lashes: appear normal, bilaterally. 11:35 ENT: External ear(s): are unremarkable, Nose: is normal, Mouth: Lips: moist, Oral mucosa: moist, Posterior pharynx: Airway: no evidence of obstruction, patent. 11:35 Neck: ROM/movement: is normal, is supple, without pain, no range of motions limitations. 11:35 Chest/axilla: Inspection: normal, Palpation: is normal, no crepitus, no tenderness. 11:35 Cardiovascular: Rate: normal, Rhythm: regular, Edema: is not appreciated, JVD: is not appreciated. 11:35 Respiratory: the patient does not display signs of respiratory distress, Respirations: normal, no use of accessory muscles, no retractions, labored breathing, is not present, Breath sounds: are clear throughout, no decreased breath sounds, no stridor, no wheezing. 11:35 Abdomen/GI: Inspection: abdomen appears normal, Bowel sounds: active, all quadrants, Palpation: soft, in all quadrants, moderate abdominal tenderness, in the epigastric area, rebound tenderness, is not appreciated, voluntary guarding, is elicited in the epigastric area. 11:35 Back: pain, is absent, ROM is normal. 11:35 Skin: cellulitis, is not appreciated, no rash present. 11:35 Neuro: Orientation: to person, place \\T\\ time. Mentation: is normal, Motor: moves all fours, strength is normal. Vital Signs: 11:08 BP 140 / 89; Pulse 85; Resp 17; Temp 99.1; Pulse Ox 100% ; Weight 122.92 kg; Height 5 eo2 ft. 9 in. (175.26 cm); Pain 7/10; 11:15 BP 140 / 80; Pulse 78; Resp 15; Pulse Ox 100% ; eo2 12:00 BP 133 / 80; Pulse 98; Resp 15; Pulse Ox 98% ; Height 6 ft. (182.88 cm); eo2 13:00 BP 146 / 77; Pulse 99; Resp 15; Pulse Ox 98% ; Pain 1/10; eo2 14:00 BP 131 / 84; Pulse 87; Resp 17; Pulse Ox 98% ; Pain 1/10; eo2 15:00 BP 117 / 65; Pulse 79; Resp 15; Pulse Ox 98% ; eo2 15:30 Pain 10/10; eo2 16:00 BP 136 / 77; Pulse 91; Resp 22; Pulse Ox 99% ; Pain 10/10; eo2 17:00 BP 133 / 77; Pulse 85; Resp 20; Pulse Ox 99% ; Pain 0/10; eo2 12:00 Body Mass Index 36.75 (122.92 kg, 182.88 cm) eo2 17:00 Pt asleep eo2 MDM: 11:01 Patient medically screened. 14:55 Data reviewed: vital signs, nurses notes, lab test result(s), EKG, radiologic studies, cp CT scan, plain films, ultrasound, and as a result, I will admit patient. 15:15 Physician consultation: Ben Peguero MD was called at 15:15, was contacted at 15:15, regarding consult, patient's condition, and will see patient in inpatient room, tomorrow, would like admission per Dr. Yonas Espinosa. 07/06 11:20 Order name: Basic Metabolic Panel 07/06 11:20 Order name: CBC with Diff; Complete Time: 12:24 07/06 12:24 Interpretation: Normal except: RBC 5.82; HCT 51.8. 07/06 11:20 Order name: LFT's; Complete Time: 12:24 07/06 12:25 Interpretation: Normal except: AST 79; ALT 99; ALK 142; TP 8.3; GLOB 4.4; A/G 0.9. 07/06 11:20 Order name: Magnesium; Complete Time: 12:24 07/06 11:20 Order name: NT PRO-BNP; Complete Time: 12:24 07/06 11:20 Order name: PT-INR; Complete Time: 12:24 07/06 11:20 Order name: Troponin HS; Complete Time: 12:24 07/06 11:20 Order name: Lipase; Complete Time: 12:24 07/06 12:25 Interpretation: LIP 112; Reviewed. 07/06 11:20 Order name: COVID-19/FLU A+B (Document "Date of Onset" if Symptomatic); Complete Time: cp 13:23 07/06 11:21 Order name: Basic Metabolic Panel; Complete Time: 12:24 EDMS 07/06 12:24 Interpretation: Normal except: NA 130; CL 95; CO2 19; GLUC 332; GFR 83. cp 07/06 12:27 Order name: Urine Microscopic Only 07/06 12:28 Order name: Urine Microscopic Only; Complete Time: 14:47 EDMS 07/06 11:20 Order name: XRAY Chest (1 view); Complete Time: 13:23 07/06 12:27 Order name: CT Abd/Pelvis - IV Contrast Only; Complete Time: 13:23 cp 07/06 13:25 Order name: US Abdomen Limited: RUQ; Complete Time: 14:47 07/06 14:47 Interpretation: Report reviewed. 07/06 14:06 Order name: Urine Dipstick-Ancillary; Complete Time: 14:47 EDMS 07/06 15:25 Order name: Cholangiogram EDWY 07/06 11:20 Order name: EKG; Complete Time: 11:21 07/06 11:20 Order name: Cardiac monitoring; Complete Time: 11:42 cp 07/06 11:20 Order name: EKG - Nurse/Tech; Complete Time: 14:17 cp 07/06 11:20 Order name: IV Saline Lock; Complete Time: 11:42 07/06 11:20 Order name: Labs collected and sent; Complete Time: 11:42 07/06 11:20 Order name: O2 Per Protocol; Complete Time: 11:42 07/06 11:20 Order name: O2 Sat Monitoring; Complete Time: 11:42 07/06 12:27 Order name: Urine Dipstick-Ancillary (obtain specimen); Complete Time: 14:17 cp EC:18 Rate is 81 beats/min. Rhythm is regular. [place] interval is normal. QRS interval is normal. cp QT interval is normal. T waves are Inverted in lead III. Interpreted by me. Reviewed by me. Administered Medications: 11:46 Drug: morphine 4 mg Route: IVP; Site: left forearm; cb5 12:46 Follow up: Response: No adverse reaction; Pain is decreased eo2 11:46 Drug: Zofran (Ondansetron) 4 mg Route: IVP; Site: left forearm; cb5 12:46 Follow up: Response: No adverse reaction; Nausea is decreased eo2 11:46 Drug: Pepcid (famotidine) 20 mg Route: IVP; Site: left forearm; cb5 12:46 Follow up: Response: No adverse reaction eo2 11:46 Drug: NS 0.9% 1000 ml Route: IV; Rate: 1 bolus; Site: left forearm; cb5 12:46 Follow up: Response: No adverse reaction; IV Status: Completed infusion; IV Intake: eo2 1000ml 13:15 Drug: NS 0.9% 1000 ml Route: IV; Rate: 1 bolus; Site: left antecubital; eo2 13:56 Follow up: Response: No adverse reaction; IV Status: Completed infusion; IV Intake: eo2 1000ml 14:15 Drug: Mefoxin (cefOXitin) 1 grams Route: IVPB; Infused Over: 30 mins; Site: left eo2 antecubital; 14:45 Follow up: Response: No adverse reaction; IV Status: Completed infusion; IV Intake: 02pbrr3 14:45 Drug: morphine 4 mg Route: IVP; Site: left antecubital; eo2 15:30 Follow up: Response: No adverse reaction; Pain is increased eo2 14:45 Drug: Zofran (Ondansetron) 4 mg Route: IVP; Site: left antecubital; eo2 15:30 Follow up: Response: No adverse reaction; Nausea is increased eo2 14:48 Drug: Flagyl (metroNIDAZOLE) 500 mg Volume: 100 ml; Route: IVPB; Rate: 200 ml/hr; eo2 Infused Over: 30 mins; Site: left antecubital; 15:50 Follow up: Response: No adverse reaction; IV Status: Completed infusion; IV Intake: eo2 100ml 15:30 Drug: Dilaudid (HYDROmorphone) 1 mg Route: IVP; Site: left antecubital; eo2 15:55 Follow up: Response: No adverse reaction; Pain is increased eo2 15:55 Drug: NS 0.9% 1000 ml Route: IV; Rate: 1 bolus; Site: left antecubital; eo2 16:55 Follow up: Response: No adverse reaction; IV Status: Completed infusion eo2 15:55 Drug: Dilaudid (HYDROmorphone) 1 mg Route: IVP; Site: left antecubital; eo2 16:55 Follow up: Response: No adverse reaction; Pain is decreased eo2 Disposition: 07/07 04:39 Co-signature as Attending Physician, Kiley Galvez MD I agree with the assessment and sp3 plan of care. Disposition Summary: 07/06/21 15:29 Hospitalization Ordered Hospitalization Status: Inpatient Admission cp Provider: Yonas Espinosa cp Location: Telemetry/MedSurg (Inpatient) cp Condition: Stable cp Problem: new cp Symptoms: have improved cp Bed/Room Type: Standard cp Room Assignment: 231(07/06/21 16:25) bd Diagnosis - Acute cholecystitis cp Forms: - Medication Reconciliation Form cp - SBAR form cp Signatures: Dispatcher [employer] EDMS Elsi Fregoso Corey, PA PA cp Kiley Galvez MD MD sp3 Savannah Sosa RN RN eo2 Tawnya Mina RN RN cb5 Corrections: (The following items were deleted from the chart) 07/06 14:13 13:28 SARS-COV-2 RT PCR ordered. EDMS EDMS 16:25 15:29 cp bd 16:25 16:25 212 bd bd
--- NOTE | 2021-07-06 15:30 | ER ---
Nurse's Notes [facility] Name: Chidi Allen Age: 35 yrs Sex: Male : 1985 Arrival Date: 07/06/2021 Time: 10:54 Bed 26 Private MD: Diagnosis: Acute cholecystitis Presentation: 07/06 11:08 Chief complaint: Patient states: chest pain/epigastric pain onset yesterday associated eo2 with SOB, RG, dizziness, N/V, denies diarrhea. Pt reports fever yesterday, took nyquil at night, states he woke up again with pain today. Pt reports his mom was COVID+ 3 weeks ago, states he finished his quarantine period. Pt vaccinated for COVID, modernax 2. Coronavirus screen: Vaccine status: Patient reports receiving the 2nd dose of the covid vaccine. Client denies travel out of the [place] in the last 14 days. Ebola Screen: Patient negative for fever greater than or equal to 101.5 degrees Fahrenheit, and additional compatible Ebola Virus Disease symptoms Patient denies exposure to infectious person. Patient denies travel to an Ebola-affected area in the 21 days before illness onset. Initial Sepsis Screen: Does the patient meet any 2 criteria? No. Patient's initial sepsis screen is negative. Does the patient have a suspected source of infection? No. Patient's initial sepsis screen is negative. Risk Assessment: Do you want to hurt yourself or someone else? Patient reports no desire to harm self or others. Onset of symptoms is unknown. 11:08 Method Of Arrival: Ambulatory eo2 11:08 Acuity: CHERRIE 2 eo2 Triage Assessment: 11:14 General: Appears uncomfortable, Behavior is calm, cooperative. Pain: Complains of pain eo2 in chest/epigastric pain. Cardiovascular: Reports chest pain, shortness of breath. Historical: - Allergies: 11:14 PENICILLINS; eo2 - PMHx: 11:14 ADD/ADHD; Anxiety; Gout; eo2 - Immunization history:: Client reports receiving the 2nd dose of the Covid vaccine. - Social history:: Smoking status: Patient denies any tobacco usage or history of. Patient/guardian denies using alcohol, street drugs. Screenin:30 Abuse screen: Denies threats or abuse. Denies injuries from another. Nutritional cb5 screening: No deficits noted. Tuberculosis screening: No symptoms or risk factors identified. 12:12 Fall Risk None identified. eo2 Assessment: 11:30 General: Appears uncomfortable, obese, well groomed, Behavior is calm, cooperative, cb5 appropriate for age. Pain: Complains of pain in abdomen Pain does not radiate. Pain currently is 5 out of 10 on a pain scale. Quality of pain is described as burning, aching, crampy. Neuro: No deficits noted. Level of Consciousness is awake, alert, obeys commands. Cardiovascular: No deficits noted. Respiratory: Reports cough that is. GI: Bowel sounds present X 4 quads. Reports upper abdominal pain, cramping, nausea. : Denies. EENT: No deficits noted. Derm: No deficits noted. Musculoskeletal: No deficits noted. 12:12 Pain: Pain began 1 day ago. eo2 12:57 Reassessment: pt back from [facility]. cb5 17:29 Reassessment: 1st attempt to call report, awaiting receiving nurse's ability. eo2 Vital Signs: 11:08 BP 140 / 89; Pulse 85; Resp 17; Temp 99.1; Pulse Ox 100% ; Weight 122.92 kg; Height 5 eo2 ft. 9 in. (175.26 cm); Pain 7/10; 11:15 BP 140 / 80; Pulse 78; Resp 15; Pulse Ox 100% ; eo2 12:00 BP 133 / 80; Pulse 98; Resp 15; Pulse Ox 98% ; Height 6 ft. (182.88 cm); eo2 13:00 BP 146 / 77; Pulse 99; Resp 15; Pulse Ox 98% ; Pain 1/10; eo2 14:00 BP 131 / 84; Pulse 87; Resp 17; Pulse Ox 98% ; Pain 1/10; eo2 15:00 BP 117 / 65; Pulse 79; Resp 15; Pulse Ox 98% ; eo2 15:30 Pain 10/10; eo2 16:00 BP 136 / 77; Pulse 91; Resp 22; Pulse Ox 99% ; Pain 10/10; eo2 17:00 BP 133 / 77; Pulse 85; Resp 20; Pulse Ox 99% ; Pain 0/10; eo2 12:00 Body Mass Index 36.75 (122.92 kg, 182.88 cm) eo2 17:00 Pt asleep eo2 ED Course: 10:54 Patient arrived in ED. mr 11:01 Carmine Collins PA is PHCP. cp 11:01 Kiley Galvez MD is Attending Physician. cp 11:08 Savannah Sosa, ELIZ is Primary Nurse. eo2 11:12 Triage completed. eo2 11:30 No provider procedures requiring assistance completed. cb5 11:30 Patient has correct armband on for positive identification. Call light in reach. Side cb5 rails up X 1. police guard on. 11:42 Basic Metabolic Panel Sent. cb5 11:42 Lipase Sent. cb5 11:42 CBC with Diff Sent. cb5 11:42 LFT's Sent. cb5 11:42 Magnesium Sent. cb5 11:42 NT PRO-BNP Sent. cb5 11:42 PT-INR Sent. cb5 11:43 Troponin HS Sent. cb5 11:43 Basic Metabolic Panel Sent. cb5 11:43 COVID-19/FLU A+B (Document "Date of Onset" if Symptomatic) Sent. cb5 11:55 Arm band placed on. cb5 12:12 Patient maintains SpO2 saturation greater than 95% on room air. eo2 12:31 XRAY Chest (1 view) In Process Unspecified. EDMS 12:47 CT Abd/Pelvis - IV Contrast Only In Process Unspecified. EDMS 14:10 US Abdomen Limited: RUQ In Process Unspecified. EDMS 14:17 Urine Microscopic Only Sent. eo2 14:17 Urine Microscopic Only Sent. eo2 15:28 Yonas Espinosa is Hospitalizing Provider. cp 18:14 Patient admitted, IV remains in place. iw Administered Medications: 11:46 Drug: morphine 4 mg Route: IVP; Site: left forearm; cb5 12:46 Follow up: Response: No adverse reaction; Pain is decreased eo2 11:46 Drug: Zofran (Ondansetron) 4 mg Route: IVP; Site: left forearm; cb5 12:46 Follow up: Response: No adverse reaction; Nausea is decreased eo2 11:46 Drug: Pepcid (famotidine) 20 mg Route: IVP; Site: left forearm; cb5 12:46 Follow up: Response: No adverse reaction eo2 11:46 Drug: NS 0.9% 1000 ml Route: IV; Rate: 1 bolus; Site: left forearm; cb5 12:46 Follow up: Response: No adverse reaction; IV Status: Completed infusion; IV Intake: eo2 1000ml 13:15 Drug: NS 0.9% 1000 ml Route: IV; Rate: 1 bolus; Site: left antecubital; eo2 13:56 Follow up: Response: No adverse reaction; IV Status: Completed infusion; IV Intake: eo2 1000ml 14:15 Drug: Mefoxin (cefOXitin) 1 grams Route: IVPB; Infused Over: 30 mins; Site: left eo2 antecubital; 14:45 Follow up: Response: No adverse reaction; IV Status: Completed infusion; IV Intake: 38oyll3 14:45 Drug: morphine 4 mg Route: IVP; Site: left antecubital; eo2 15:30 Follow up: Response: No adverse reaction; Pain is increased eo2 14:45 Drug: Zofran (Ondansetron) 4 mg Route: IVP; Site: left antecubital; eo2 15:30 Follow up: Response: No adverse reaction; Nausea is increased eo2 14:48 Drug: Flagyl (metroNIDAZOLE) 500 mg Volume: 100 ml; Route: IVPB; Rate: 200 ml/hr; eo2 Infused Over: 30 mins; Site: left antecubital; 15:50 Follow up: Response: No adverse reaction; IV Status: Completed infusion; IV Intake: eo2 100ml 15:30 Drug: Dilaudid (HYDROmorphone) 1 mg Route: IVP; Site: left antecubital; eo2 15:55 Follow up: Response: No adverse reaction; Pain is increased eo2 15:55 Drug: NS 0.9% 1000 ml Route: IV; Rate: 1 bolus; Site: left antecubital; eo2 16:55 Follow up: Response: No adverse reaction; IV Status: Completed infusion eo2 15:55 Drug: Dilaudid (HYDROmorphone) 1 mg Route: IVP; Site: left antecubital; eo2 16:55 Follow up: Response: No adverse reaction; Pain is decreased eo2 Intake: 12:46 IV: 1000ml; Total: 1000ml. eo2 13:56 IV: 1000ml; Total: 2000ml. eo2 14:45 IV: 50ml; Total: 2050ml. eo2 15:50 IV: 100ml; Total: 2150ml. eo2 Output: 17:11 Urine: 700ml (Voided); Total: 700ml. eo2 Outcome: 15:29 Decision to Hospitalize by Provider. cp 18:08 Admitted to Med/surg accompanied by tech, via wheelchair, with chart, Report called to iw Patience 18:08 Condition: stable 18:08 Discharge instructions given to patient, Instructed on the need for admit. 18:09 Patient left the ED. iw Signatures: Dispatcher [employer] Vida Arroyo Irene, RN RN iw Carmine Collins, PA PA cp Savannah Sosa RN RN eo2 Tawnya Mina RN RN cb5 Corrections: (The following items were deleted from the chart) 13:56 13:56 IV Status: Completed infusion; IV Intake: 1000ml eo2 eo2
--- NOTE | 2021-07-06 16:12 | P.HP ---
Certification for Inpatient Patient admitted to: Inpatient With expected LOS: >2 Midnights Practitioner: I am a practitioner with admitting privileges, knowledge of patient current condition, hospital course, and medical plan of care. Services: Services provided to patient in accordance with Admission requirements found in Title 42 Section 412.3 of the Code of Federal Regulations Patient History Date of Service: 07/06/21 Reason for admission: Abdominal pain History of Present Illness: 35-year-old obese gentleman with a history of diabetes mellitus, noncompliance to treatment, history of GERD presented to the emergency department with a complaint of epigastric pain, described as severe, 8-10 over 10, intermittent, colicky in nature, associated with nausea and vomiting. Pain has been present since yesterday. CT abdomen and pelvis done in the emergency department demonstrate distended gallbladder and suggestion of acalculous cholecystitis. Patient with hyperglycemia blood sugar in the 300s. General surgery contacted who recommended admission to the hospitalist service for him to evaluate for further management. Allergies Penicillins Allergy (Mild, Verified 06/04/12 18:26) Rash Home Medications: NK [No Home Meds] 07/06/21 - Past Medical/Surgical History Diabetic: No -: smoker -: gout -: GERD -: DM type II -: right ankle surgery -: tonsilectomy - Social History Smoking Status: Never smoker Alcohol use: No CD- Drugs: No Caffeine use: No Review of Systems Other: Patient denied any fever. He denied any cough or shortness of breath. Except as documented, all other systems reviewed and negative. Physical Examination - Physical Exam General: Alert, Mild distress (Due to pain) HEENT: Normocephalic, PERRLA, Mucous membr. moist/pink, Sclerae nonicteric Neck: Supple, JVD not distended Respiratory: Clear to auscultation bilaterally, Normal air movement Cardiovascular: No edema, Regular rate/rhythm, Normal S1 S2, No murmurs Gastrointestinal: Normal bowel sounds, Soft and benign, Non-distended, Tenderness (Epigastrium) Musculoskeletal: No swelling, No tenderness Integumentary: No rashes, No erythema Neurological: Normal speech, Normal strength at 5/5 x4 extr, Cranial nerves 3-12 intact Lymphatics: No axilla or inguinal lymphadenopathy - Studies Laboratory Data (last 24 hrs) 07/06/21 11:40: PT 12.3, INR 1.07 07/06/21 11:40: WBC 9.20, Hgb 17.6, Hct 51.8 H, Plt Count 218 07/06/21 11:40: Sodium 130 L, Potassium 3.7, BUN 7, Creatinine 1.02, Glucose 332 H, Magnesium 2.1, Total Bilirubin 0.8, AST 79 H, ALT 99 H, Alkaline Phosphatase 142 H, Lipase 112 Assessment and Plan - Problems (Diagnosis) (1) Acute acalculous cholecystitis Current Visit: Yes Status: Acute (2) GERD (gastroesophageal reflux disease) Current Visit: Yes Status: Acute (3) Diabetes mellitus with hyperglycemia Current Visit: Yes Status: Acute (4) Hyponatremia Current Visit: Yes Status: Acute (5) Transaminitis Current Visit: Yes Status: Acute (6) Hepatic steatosis Current Visit: Yes Status: Acute - Plan Admit to the medical floor. Mild hyponatremia likely spurious secondary to hyperglycemia. Start empiric IV Levaquin and Flagyl. General surgery-Dr. Peguero consulted. Dr. Peguero recommend MRCP due to elevated LFT which is requested. Patient with significant pain, may need cholecystectomy. Supportive measures with IV morphine as needed pain. Hydrate with IV normal saline. Insulin sliding scale for glucose management. Monitor CBC and blood chemistry. IV Protonix for GERD. - Advance Directives Does patient have a Living Will: No Does patient have a Durable POA for Healthcare: No
[2021-07-06] MEDS ORDERED: MORPHINE 2 MG/ML SYR ONE (18:06)
[2021-07-06] MEDS ORDERED: SODIUM CHLORIDE 0.9% 10ML INJ IV PRN (18:10)
[2021-07-06] MEDS ORDERED: MORPHINE 2 MG/ML SYR IV PRN (18:10)
[2021-07-06] MEDS ORDERED: INFLUENZA VACCINE (for 6+ mo) 0.5 ML DOSE IMVAC ONE (19:00)
[2021-07-06] MEDS: D5 0.9 NS 1,000 ML IV SCH (19:23)
[2021-07-06] MEDS: Levofloxacin 750mg IV 750 MG/150 ML BAG IV SCH (19:59)
[2021-07-06] MEDS: HYDROMORPHONE HCL 1 MG/ML INJ IV PRN (20:48)
[2021-07-06] MEDS ORDERED: MELATONIN 5 MG TABLET PO PRN (21:34)
[2021-07-07] MEDS: METRONIDAZOLE 500mg IVPB 500 MG/100 ML BAG IV SCH ×3 (00:34→16:49)
[2021-07-07] MEDS: PANTOPRAZOLE 40 MG INJ IVP SCH (01:45)
[2021-07-07] MEDS: ONDANSETRON 4 MG/2 ML VIAL IV PRN ×3 (01:53→15:15)
[2021-07-07 03:52] LABS: Urine Appearance CLEAR (Clear); Urine Bilirubin NEGATIVE (Negative); Urine Blood 2+ (Negative); Urine Color YELLOW (Yellow); Urine Glucose 3+ (Negative); Urine Protein 1+ (Negative); Urine Specific Gravity 1.025 (1.005-1.030); Urine Urobilinogen 0.2 mg/dL (0.2-1.0)
[2021-07-07 03:55] LABS: Urine Microscopic Reflex ORDER UMIC
[2021-07-07 04:08] LABS: Urine Bacteria <20 /HPF (NONE SEEN); Urine RBC <5 /HPF (NONE SEEN)
[2021-07-07] MEDS: D5 0.9 NS 1,000 ML IV SCH (04:31)
[2021-07-07 06:24] LABS: Absolute Lymphocytes (CBC) 1.1 K/uL (0.7-4.9); Hematocrit 53.8 % (39.6-49.0); Lymphocytes % 8.2 % (15.3-44.8); MPV 10.3 fL (7.6-11.3); RBC Red Blood Cell Count 5.89 M/uL (4.33-5.43)
[2021-07-07 07:44] LABS: Blood Morphology Comment NOT SEEN (NOT SEEN); Platelet Estimate ADEQ; White Blood Cell Scan OK (OK)
[2021-07-07 08:07] LABS: Albumin 3.8 g/dL (3.4-5.0); Bilirubin Direct 0.5 mg/dL (0-0.2); Magnesium 2.1 mg/dL (1.8-2.4); Phosphorus 2.8 mg/dL (2.5-4.9); Protein, Total 7.8 g/dL (6.4-8.2)
--- NOTE | 2021-07-07 08:14 | RAD REPORT ---
EXAM DESCRIPTION: MRI - Cholangiogram - 07/07/2021 7:45 am CLINICAL HISTORY: Nausea, vomiting,, abdominal pain, suspected acalculous cholecystitis COMPARISON: Gallbladder ultrasound July 06, CT abdomen and pelvis July 06 TECHNIQUE: Axial and coronal heavily T2 weighted sequences were obtained. Coronal T2 HASTE fat satur ation static and coronal multiplane reconstruction imaging generated and reviewed. Horizontal and katie tical axis rotational views obtained using maximum intensity projection (MIP) protocol. FINDINGS: Distended gallbladder is seen without identifiable stone within the lumen. There is perich olecystic fluid around the gallbladder. Common hepatic duct is 8 mm in diameter tapering to 5 mm in the common bile duct. No duct stone, mass , stricture or other luminal process. IMPRESSION: Negative examination of the biliary tree. Distended gallbladder with pericholecystic fluid but no identifiable stones.
--- NOTE | 2021-07-07 09:03 | PREOPCON ---
Date of Consultation: 07/06/2021 Reason: Abdominal pain. History Of Present Illness: The patient is a 35-year-old gentleman with acute onset of epigastric an d right upper quadrant abdominal pain associated with nausea and vomiting, bloating, belching, and he artburn yesterday, colicky in nature. No diarrhea or constipation. No blood in his stool. No dysur ia or hematuria. No sore throat, runny nose, cough, headaches, or dizziness. No chest pain. He did have low-grade fever yesterday, but none today. Review of Systems: Otherwise, unremarkable. Past Medical History: Significant for GERD, type 2 diabetes, tobacco use, gout. Past Surgical History: Right ankle surgery and tonsillectomy. Allergies: INCLUDE PENICILLIN. Social History: The patient currently does not smoke. Denies alcohol use. Physical Examination: Vital Signs: Vitals are stable. His heart rate is slightly high at 103. He is afebrile. He is jaylan ke, alert, and oriented x3. Head and Neck: Cranial nerves 2 through 12 grossly within normal limits. No neck masses. No JVD. Throat clear. Neck is supple. No evidence of icterus. Chest: Clear. Heart: S1 and S2. Abdomen: Soft, nondistended. Positive bowel sounds. Positive right upper quadrant tenderness with rebound. No rigidity or guarding. Extremities: Adequately perfused. Nontender. Neuro: Nonfocal. Laboratory Data: His count is today is 13.4 with a left shift. His INR is 1.07. Chemistry reviewed . His AST and ALT are elevated at 285 and 416 and alkaline phosphatase is 162, direct bilirubin is 0 .5. His CO2 is 12. Glucose is 349. His MRCP reviewed with Dr. Julien which shows distended gallbl adder with pericholecystic fluid but no identifiable stones. Negative examination of the biliary gilberto e. No duct stone, mass, stricture, or other luminal process. Assessment: Acute acalculous cholecystitis. The patient may have passed a stone as his liver functi on is elevated or may be secondary to fatty liver which was seen on the CT as well as the acute infla mmation that is present. Recommendations: Continue IV antibiotics. We will proceed with laparoscopic cholecystectomy, possib le open. The patient understands the risks, benefits, and alternatives and agrees to procedure. /MODL Voice ID: [id number] Report ID: [id number]
[2021-07-07] MEDS ORDERED: INSULIN -REGULAR HUMAN 50 UNIT/0.5 ML ML IV ONE (10:03)
[2021-07-07 11:35] LABS: BUN Blood Urea Nitrogen 10 mg/dL (7-18); Glucose Level 348 mg/dL (74-106); Potassium 3.6 mmol/L (3.5-5.1); Sodium Level 135 mmol/L (136-145)
[2021-07-07 11:37] LABS: Bicarbonate 10 mmol/L (21-32)
--- NOTE | 2021-07-07 13:06 | EKG ---
Test Date: 2021-07-06 Test Time: 11:12:38 [employer]ne[employer]: SERGIO MEASUREMENT RESULTS: Intervals: Rate: 81 TX: 138 QRSD: 82 QT: 398 QTc: 462 [place]: P: 61 TX: 138 QRS: 40 T: -21 INTERPRETIVE STATEMENTS: Normal sinus rhythm Possible Left atrial enlargement Cannot rule out Inferior infarct, age undetermined Abnormal ECG Compared to ECG 10/30/2013 02:45:59 Myocardial infarct finding now present T-wave abnormality no longer present Possible ischemia no longer present Electronically Signed On 07-07-21 13:03:01 [employer] ACCESS DEVELOPER by Gorge Anderson
[2021-07-07] MEDS: NA CHLORIDE 0.9% 1,000 ML IV SCH ×5 (13:29→22:29)
[2021-07-07] MEDS: INSULIN -REGULAR HUMAN 100 UNIT in NA CHLORIDE 0.9% 100 ML IV SCH (13:30)
--- NOTE | 2021-07-07 14:09 | P.PN ---
Subjective Date of Service: 07/07/21 Chief Complaint: Abdominal pain Patient complaining of thirst. States abdominal pain is much better. Notes that he has metabolic acidosis and hyperglycemia indicating DKA. Physical Examination - Vital Signs Temperature: 99.1 F Blood Pressure: 127/65 Pulse: 99 Respirations: 21 Pulse Ox (%): 98 - Physical Exam General: Alert, In no apparent distress, Oriented x3 HEENT: Mucous membr. moist/pink Neck: JVD not distended Respiratory: Clear to auscultation bilaterally, Normal air movement Cardiovascular: No edema, Regular rate/rhythm, Normal S1 S2, No murmurs Capillary refill: <2 Seconds Gastrointestinal: Normal bowel sounds, Soft and benign, Non-distended, No tenderness Musculoskeletal: No swelling Integumentary: No rashes Neurological: Normal strength at 5/5 x4 extr Assessment And Plan - Current Problems (Diagnosis) (1) Acute acalculous cholecystitis Current Visit: Yes Status: Acute (2) GERD (gastroesophageal reflux disease) Current Visit: Yes Status: Acute (3) Diabetes mellitus with hyperglycemia Current Visit: Yes Status: Acute (4) Hyponatremia Current Visit: Yes Status: Acute (5) Transaminitis Current Visit: Yes Status: Acute (6) Hepatic steatosis Current Visit: Yes Status: Acute (7) DKA (diabetic ketoacidosis) Current Visit: Yes Status: Acute - Plan Patient is currently in DKA. Transfer to ICU and start DKA protocol with insulin drip, aggressive IV hydration, and BMP every 4 hours monitoring. Lap cholecystectomy postponed and to DKA resolved Continue IV Levaquin and Flagyl. General surgery-Dr. Peguero is following. Liver enzymes trended up. MRCP shows distended gallbladder with pericholecystic fluid, no gallstones and normal biliary tree. No duct dilatation. Monitor CBC. Continue IV Protonix for GERD.
[2021-07-07 15:05] LABS: Potassium 4.1 mmol/L (3.5-5.1)
[2021-07-07 15:48] VITALS: BMI 37.3
[2021-07-07] MEDS: ACETAMINOPHEN 500 MG TAB PO PRN ×2 (16:32→21:19)
[2021-07-07] MEDS: PROMETHAZINE INJ 25 MG/ML AMP IV PRN ×2 (16:32→23:41)
[2021-07-07] MEDS ORDERED: D5 0.45 NS 1,000 ML IV SCH (20:00)
[2021-07-07] MEDS: Levofloxacin 750mg IV 750 MG/150 ML BAG IV SCH (20:11)
[2021-07-07] MEDS: D5.45NS W/KCL 20MEQ 1,000 ML IV SCH (20:12)
[2021-07-07 20:42] LABS: BUN Blood Urea Nitrogen 10 mg/dL (7-18); Glucose Level 235 mg/dL (74-106); Potassium 3.9 mmol/L (3.5-5.1); Sodium Level 136 mmol/L (136-145)
[2021-07-07 20:43] LABS: Bicarbonate 8 mmol/L (21-32)
[2021-07-07 21:44] LABS: Arterial Blood Carboxyhemoglob 1.7 % (0-1.5); Blood Gas Oxyhemoglobin 94.9 % (94-97); Blood O2 Saturation 97.7 % (92-98.5)
[2021-07-07 23:20] LABS: Potassium 3.5 mmol/L (3.5-5.1)
[2021-07-07] MEDS: HYDROMORPHONE HCL 1 MG/ML INJ IV PRN (23:46)
[2021-07-08] MEDS: METRONIDAZOLE 500mg IVPB 500 MG/100 ML BAG IV SCH ×3 (00:58→17:23)
[2021-07-08] MEDS: D5.45NS W/KCL 20MEQ 1,000 ML IV SCH ×2 (02:40→09:20)
[2021-07-08 03:30] LABS: Absolute Lymphocytes (CBC) 2.1 K/uL (0.7-4.9); Hematocrit 44.7 % (39.6-49.0); Lymphocytes % 18.7 % (15.3-44.8); MPV 9.6 fL (7.6-11.3); RBC Red Blood Cell Count 4.99 M/uL (4.33-5.43)
[2021-07-08 03:37] LABS: BUN Blood Urea Nitrogen 9 mg/dL (7-18); Bicarbonate 17 mmol/L (21-32); Glucose Level 213 mg/dL (74-106); Potassium 3.2 mmol/L (3.5-5.1); Sodium Level 137 mmol/L (136-145)
[2021-07-08 04:05] LABS: Phosphorus 0.9 mg/dL (2.5-4.9)
[2021-07-08] MEDS: PROMETHAZINE INJ 25 MG/ML AMP IV PRN (04:18)
[2021-07-08] MEDS: INSULIN -REGULAR HUMAN 100 UNIT in NA CHLORIDE 0.9% 100 ML IV SCH (04:23)
[2021-07-08] MEDS ORDERED: POTASSIUM PHOS 30 MM in NA CHLORIDE 0.9% 500 ML IV ONE (04:33)
[2021-07-08] MEDS: HYDROMORPHONE HCL 1 MG/ML INJ IV PRN (04:47)
[2021-07-08] MEDS ORDERED: POTASSIUM PHOS 20 MM in NA CHLORIDE 0.9% 500 ML IV ONE (05:00)
[2021-07-08] MEDS ORDERED: POTASSIUM PHOS IN 0.9 % NACL 15 MMOL/250 ML BAG IV ONE ×3 (05:15→08:32)
[2021-07-08] MEDS: NA CHLORIDE 0.9% 1,000 ML IV SCH ×2 (06:13→13:58)
[2021-07-08 08:05] LABS: BUN Blood Urea Nitrogen 8 mg/dL (7-18); Bicarbonate 17 mmol/L (21-32); Glucose Level 217 mg/dL (74-106); Potassium 3.4 mmol/L (3.5-5.1); Sodium Level 137 mmol/L (136-145)
[2021-07-08] MEDS: PANTOPRAZOLE 40 MG INJ IVP SCH (08:32)
[2021-07-08] MEDS ORDERED: GLUCAGON 1 MG/VIAL IM PRN (09:43)
[2021-07-08] MEDS ORDERED: D50W 25 GM/50 ML SYRINGE IV PRN (09:43)
[2021-07-08] MEDS: ACETAMINOPHEN 500 MG TAB PO PRN (10:30)
--- NOTE | 2021-07-08 10:39 | P.PN ---
Subjective Date of Service: 07/08/21 Chief Complaint: Abdominal pain Patient CBI right upper quadrant pain last night. States he feels better this morning. DKA resolved. Physical Examination - Vital Signs Temperature: 98 F Blood Pressure: 127/74 Pulse: 72 Respirations: 20 Pulse Ox (%): 99 - Physical Exam General: Alert, In no apparent distress HEENT: Mucous membr. moist/pink Respiratory: Clear to auscultation bilaterally, Normal air movement Cardiovascular: No edema, Regular rate/rhythm, Normal S1 S2 Gastrointestinal: Soft and benign, Non-distended, Tenderness (Right upper quadrant) Musculoskeletal: No erythema Integumentary: No rashes Neurological: Normal strength at 5/5 x4 extr Assessment And Plan - Current Problems (Diagnosis) (1) Acute acalculous cholecystitis Current Visit: Yes Status: Acute (2) GERD (gastroesophageal reflux disease) Current Visit: Yes Status: Acute (3) Diabetes mellitus with hyperglycemia Current Visit: Yes Status: Acute (4) Hyponatremia Current Visit: Yes Status: Acute (5) Transaminitis Current Visit: Yes Status: Acute (6) Hepatic steatosis Current Visit: Yes Status: Acute (7) DKA (diabetic ketoacidosis) Current Visit: Yes Status: Acute - Plan DKA resolved Start aggressive insulin sliding scale. Start Lantus insulin 10 units daily. Patient planned for lap cholecystectomy tomorrow. Clear liquid diet per Dr. Peguero. Continue IV Levaquin and Flagyl. MRCP shows distended gallbladder with pericholecystic fluid, no gallstones and normal biliary tree. No duct dilatation. LFTs elevated Repeat LFT Monitor CBC. Continue IV Protonix for GERD.
[2021-07-08] MEDS: INSULIN -REGULAR HUMAN 50 UNIT/0.5 ML ML SQ SCH ×4 (11:04→20:40)
[2021-07-08] MEDS: INSULIN GLARGINE 100 UNIT/ML SQ SCH (11:12)
--- NOTE | 2021-07-08 11:39 | PN ---
Date of Progress Note: 07/08/2021 Subjective: The patient is awake, alert, feels better. Still with pain in the right upper quadrant. Objective: Vital Signs: His vitals are stable. He is afebrile. Abdomen: Soft. Still tenderness with rebound in the right upper quadrant. No rigidity or guarding. Laboratory Data: His white count is 11.2. His chemistry shows his sugar to be better control. It i s low 200s and his CO2 is up to 17. Assessment: Acute acalculous cholecystitis and the patient with diabetic ketoacidosis, which is impr oving. Recommendations: We will continue to medically optimize this patient. We will proceed with laparosc opic cholecystectomy tomorrow. The patient understands the risks, benefits, and alternatives and agr ees to procedure. Continue IV antibiotics. /MODL Voice ID: [id number] Report ID: [id number]
[2021-07-08 12:14] LABS: Bilirubin Direct 0.5 mg/dL (0-0.2); Bilirubin Total 1.1 mg/dL (0.2-1.0); Protein, Total 6.3 g/dL (6.4-8.2)
[2021-07-08] MEDS: Levofloxacin 750mg IV 750 MG/150 ML BAG IV SCH (20:30)
[2021-07-09] MEDS: NA CHLORIDE 0.9% 1,000 ML IV SCH ×5 (00:47→23:00)
[2021-07-09] MEDS: METRONIDAZOLE 500mg IVPB 500 MG/100 ML BAG IV SCH ×3 (00:48→16:37)
[2021-07-09 04:23] LABS: Absolute Lymphocytes (CBC) 2.4 K/uL (0.7-4.9); Hematocrit 46.3 % (39.6-49.0); Lymphocytes % 37.8 % (15.3-44.8); MPV 9.4 fL (7.6-11.3); RBC Red Blood Cell Count 5.18 M/uL (4.33-5.43)
[2021-07-09 04:47] LABS: BUN Blood Urea Nitrogen 5 mg/dL (7-18); Bicarbonate 24 mmol/L (21-32); Glucose Level 269 mg/dL (74-106); Magnesium 1.9 mg/dL (1.8-2.4); Phosphorus 1.6 mg/dL (2.5-4.9); Sodium Level 136 mmol/L (136-145)
[2021-07-09 04:48] LABS: Potassium 2.8 mmol/L (3.5-5.1)
[2021-07-09] MEDS: ONDANSETRON 4 MG/2 ML VIAL IV PRN (05:25)
[2021-07-09] MEDS: KCL 20 MEQ/100 mL IVPB 20 MEQ/100 ML BAG IV SCH ×3 (05:41→10:26)
[2021-07-09] MEDS: INSULIN -REGULAR HUMAN 50 UNIT/0.5 ML ML SQ SCH ×4 (07:30→20:55)
[2021-07-09] MEDS: PANTOPRAZOLE 40 MG INJ IVP SCH (08:06)
[2021-07-09] MEDS: INSULIN GLARGINE 100 UNIT/ML SQ SCH (09:00)
[2021-07-09] MEDS ORDERED: propofoL 200 MG/20 ML VIAL IV ONE (12:23)
[2021-07-09] MEDS ORDERED: NA CHLORIDE 0.9% 1,000 ML ONE ×2 (12:23→13:56)
[2021-07-09] MEDS ORDERED: CEFOXITIN/NS 1gm 1 GM/50 ML BAG ONE (12:23)
[2021-07-09] MEDS ORDERED: FENTANYL CITR 100 MCG/2 ML ONE ×3 (12:23→13:51)
[2021-07-09] MEDS ORDERED: LIDOCAINE 1% MPF 5 ML VIAL ONE (12:23)
[2021-07-09] MEDS ORDERED: ROCURONIUM 50 MG/5 ML VIAL IV ONE ×2 (12:23→13:17)
[2021-07-09] MEDS ORDERED: MIDAZOLAM HCL 2 MG/2 ML INJ ONE (12:23)
[2021-07-09] MEDS ORDERED: KETOROLAC 30 MG/ML INJ ONE (13:04)
[2021-07-09] MEDS ORDERED: ONDANSETRON 4 MG/2 ML VIAL ONE (13:16)
[2021-07-09] MEDS ORDERED: GLYCOPYRROLATE 0.2 MG/ML SYR ONE (13:51)
[2021-07-09] MEDS ORDERED: NEOSTIGMINE 1 MG/ML -5 ML ONE (14:00)
[2021-07-09] MEDS ORDERED: Mastisol Adhesive Liq ONE (14:03)
--- NOTE | 2021-07-09 14:24 | P.PN ---
Subjective Date of Service: 07/09/21 Chief Complaint: Abdominal pain Patient denies any complaint today. Afebrile and denies any abdominal pain. Physical Examination - Vital Signs Temperature: 97.9 F Blood Pressure: 129/75 Pulse: 78 Respirations: 18 Pulse Ox (%): 98 - Physical Exam General: Alert, In no apparent distress, Oriented x3 HEENT: Mucous membr. moist/pink Respiratory: Clear to auscultation bilaterally, Normal air movement Cardiovascular: No edema, Regular rate/rhythm, Normal S1 S2 Gastrointestinal: Soft and benign, Non-distended, Tenderness (Right upper quadrant) Musculoskeletal: No swelling Integumentary: No rashes Assessment And Plan - Current Problems (Diagnosis) (1) Acute acalculous cholecystitis Current Visit: Yes Status: Acute (2) GERD (gastroesophageal reflux disease) Current Visit: Yes Status: Acute (3) Diabetes mellitus with hyperglycemia Current Visit: Yes Status: Acute (4) Hyponatremia Current Visit: Yes Status: Acute (5) Transaminitis Current Visit: Yes Status: Acute (6) Hepatic steatosis Current Visit: Yes Status: Acute (7) DKA (diabetic ketoacidosis) Current Visit: Yes Status: Acute - Plan DKA resolved Continue aggressive insulin sliding scale and titrate Lantus insulin. Patient planned for lap cholecystectomy today Continue IV Levaquin and Flagyl. MRCP shows distended gallbladder with pericholecystic fluid, no gallstones and normal biliary tree. No duct dilatation. LFTs trended down. Monitor CBC. Continue IV Protonix.
--- NOTE | 2021-07-09 14:30 | P.OP ---
Recharger: Jackson SHIRLEY Preoperative diagnosis: Acute Acalculous Cholecystitis Postoperative diagnosis: Same Primary procedure: Lap Veronica Anesthesia: General Estimated blood loss: min Specimen: GB Findings: as above Complications: None Transferred to: Recovery Room Condition: Good
[2021-07-09] MEDS: HYDROMORPHONE HCL 1 MG/ML INJ IV PRN (16:37)
--- NOTE | 2021-07-09 17:32 | OP ---
Date of Procedure: 07/09/2021 Surgeon: Ben Peguero MD Rail Layer: FERN Vann. Preoperative Diagnosis: Acute acalculous cholecystitis. Postoperative Diagnosis: Acute acalculous cholecystitis. Procedure: Laparoscopic cholecystectomy. Estimated Blood Loss: Minimal. Specimen: Gallbladder. Finding: As above. Anesthesia: General. Complications: None. Disposition: The patient tolerated the procedure in stable condition and taken to Recovery in good g eneral condition. Description Of Procedure: The patient was brought to the OR and placed in supine position. General anesthesia begun. The patient was prepped and draped in the usual sterile fashion. Marcaine 0.5% wa s infiltrated locally. A 15-blade was used to make a 1 cm supraumbilical midline incision. Subcutan eous tissue divided. Fascia identified and divided. A #1 Vicryl stay suture was placed. Peritoneal cavity entered with sharp and blunt dissection. A 12 mm trocar placed into the peritoneal cavity un thuan direct vision. Pneumoperitoneum was established and then three 5 mm trocars were placed, 1 in th e epigastrium just to the right of midline and 2 in the right subcostal region. Laparoscopy revealed a large distended gallbladder with acute inflammation and some adhesions to the body and infundibulu m which were taken down with sharp and blunt dissection. Bleeding controlled with cautery. Fundus r etracted superiorly. Infundibulum identified and retracted inferolaterally. Cystic duct and cystic artery were clearly identified with blunt dissection. Clips placed. Both structures divided. Caute ry used to remove the gallbladder from the liver bed. Bleeding on the liver bed was controlled with cautery. Gallbladder was retrieved through the umbilicus via an EndoCatch bag. Right upper quadrant was irrigated. There was some oozing noted and this was controlled with another vascular clip as we ll as Surgicel. No further evidence of bleeding was noted. Effluent was clear. No bile leakage heaven reciated. Subsequently, all trocars were removed under direct vision. Stay sutures were tied to eac h other to reapproximate the fascial defect. Subcutaneous wounds irrigated. Bleeding controlled wit h cautery and then 3-0 chromic used to approximate the subcutaneous tissue and close the skin. Steri le dressing applied. The patient was awakened and taken to Recovery in good general condition. /MODL Voice ID: [id number] Report ID: [id number]
[2021-07-09] MEDS: Levofloxacin 750mg IV 750 MG/150 ML BAG IV SCH (20:55)
[2021-07-09] MEDS: HYDROCODONE/APAP 7.5/325 MG TAB PO PRN (20:55)
[2021-07-10] MEDS: METRONIDAZOLE 500mg IVPB 500 MG/100 ML BAG IV SCH ×2 (02:21→09:36)
[2021-07-10] MEDS: HYDROCODONE/APAP 7.5/325 MG TAB PO PRN (03:46)
[2021-07-10] MEDS: NA CHLORIDE 0.9% 1,000 ML IV SCH (05:40)
[2021-07-10] MEDS: HYDROMORPHONE HCL 1 MG/ML INJ IV PRN ×2 (05:49→10:02)
[2021-07-10 05:54] LABS: Absolute Lymphocytes (CBC) 2.1 K/uL (0.7-4.9); Hematocrit 43.3 % (39.6-49.0); Lymphocytes % 23.9 % (15.3-44.8); MPV 9.2 fL (7.6-11.3); RBC Red Blood Cell Count 4.87 M/uL (4.33-5.43)
[2021-07-10 06:01] LABS: BUN Blood Urea Nitrogen 5 mg/dL (7-18); Bicarbonate 22 mmol/L (21-32); Glucose Level 242 mg/dL (74-106); Magnesium 1.9 mg/dL (1.8-2.4); Potassium 3.1 mmol/L (3.5-5.1); Sodium Level 133 mmol/L (136-145)
[2021-07-10 08:58] VITALS: O2SAT 97
[2021-07-10] MEDS ORDERED: POTASSIUM CL SA 10 MEQ TAB PO ONE (09:00)
[2021-07-10] MEDS ORDERED: POTASSIUM PHOS IN 0.9 % NACL 15 MMOL/250 ML BAG IV ONE (09:00)
[2021-07-10] MEDS: INSULIN GLARGINE 100 UNIT/ML SQ SCH (09:33)
[2021-07-10] MEDS: PANTOPRAZOLE 40 MG INJ IVP SCH (09:34)
[2021-07-10] MEDS: INSULIN -REGULAR HUMAN 50 UNIT/0.5 ML ML SQ SCH ×2 (09:34→12:36)
--- NOTE | 2021-07-10 10:52 | P.DS ---
Admission Date: 07/06/21 Discharge Date: 07/10/21 Disposition: ROUTINE DISCHARGE Discharge Condition: GOOD Reason for Admission: Abdominal pain - Problems (1) Acute acalculous cholecystitis Current Visit: Yes Status: Acute (2) GERD (gastroesophageal reflux disease) Current Visit: Yes Status: Acute (3) Diabetes mellitus with hyperglycemia Current Visit: Yes Status: Acute (4) Hyponatremia Current Visit: Yes Status: Acute (5) Transaminitis Current Visit: Yes Status: Acute (6) Hepatic steatosis Current Visit: Yes Status: Acute (7) DKA (diabetic ketoacidosis) Current Visit: Yes Status: Acute Brief History of Present Illness: 35-year-old obese gentleman with a history of diabetes mellitus, noncompliance to treatment, history of GERD presented to the emergency department with a complaint of epigastric pain, described as severe, 8-10 over 10, intermittent, colicky in nature, associated with nausea and vomiting. Pain has been present since yesterday. CT abdomen and pelvis done in the emergency department demonstrate distended gallbladder and suggestion of acalculous cholecystitis. Patient with hyperglycemia blood sugar in the 300s. General surgery contacted who recommended admission to the hospitalist service for him to evaluate for further management. Hospital Course: Patient admitted to the medical floor and started on IV antibiotics. He was seen by general surgeon-Dr. Peguero recommended lap cholecystectomy. Patient developed DKA and was transferred to the ICU on DKA protocol, treated with i nsulin drip and aggressive IV hydration. DKA resolved, lap cholecystectomy done. Patient monitored for 24 hours after the lap cholecystectomy. His blood sugar was managed with Lantus insulin and insulin sliding scale. Hemoglobin A1c is 11. Patient has newly diagnosed diabetes who will need insulin therapy. Diabetic teaching provided. He is prescribed Lantus insulin 15 unit daily and Metformin. Patient has no symptoms today and deemed stable for discharge. Vital Signs/Physical Exam: Temp Pulse Resp BP Pulse Ox 97.8 F 18 L 18 134/61 99 07/10/21 08:00 07/10/21 08:00 07/10/21 10:02 07/10/21 08:00 07/10/21 10:02 General: Alert, In no apparent distress, Oriented x3, Obese HEENT: Mucous membr. moist/pink Neck: JVD not distended Respiratory: Clear to auscultation bilaterally, Normal air movement Cardiovascular: No edema, Regular rate/rhythm, Normal S1 S2 Gastrointestinal: Normal bowel sounds, Soft and benign, Non-distended, No tenderness, Other (Laparoscopic wounds-dressed.) Musculoskeletal: No swelling, No tenderness Integumentary: No rashes Neurological: Normal strength at 5/5 x4 extr Laboratory Data at Discharge: WBC 8.90 K/uL (4.3-10.9) D 07/10/21 05:10 Hgb 14.9 g/dL (13.6-17.9) 07/10/21 05:10 Hct 43.3 % (39.6-49.0) 07/10/21 05:10 Plt Count 172 K/uL (152-406) 07/10/21 05:10 PT 12.3 SECONDS (9.5-12.5) 07/06/21 11:40 INR 1.07 07/06/21 11:40 Sodium 133 mmol/L (136-145) L 07/10/21 05:10 Potassium 3.1 mmol/L (3.5-5.1) L 07/10/21 05:10 BUN 5 mg/dL (7-18) L 07/10/21 05:10 Creatinine 0.78 mg/dL (0.55-1.3) 07/10/21 05:10 Glucose 242 mg/dL (74-106) H 07/10/21 05:10 Phosphorus 2.0 mg/dL (2.5-4.9) L 07/10/21 05:10 Magnesium 1.9 mg/dL (1.8-2.4) 07/10/21 05:10 Total Bilirubin 1.1 mg/dL (0.2-1.0) H 07/08/21 07:07 AST 172 U/L (15-37) H D 07/08/21 07:07 ALT 318 U/L (12-78) H* 07/08/21 07:07 Alkaline Phosphatase 147 U/L (45-117) H 07/08/21 07:07 Lipase 112 U/L (73-393) 07/06/21 11:40 Home Medications: Alcohol Antiseptic Pads [Alcohol Prep Pad] 1 each TP DAILY #100 med..pad 07/10/21 Blood Sugar Diagnostic [Blood Glucose Test Strip] 1 each MC DAILY #30 strip 07/10/21 Blood-Glucose Meter [Blood Glucose Monitoring] 1 each MC DAILY #1 kit 07/10/21 Codeine/APAP [Tylenol W/Codeine #3 tab] 1 tab PO Q6HP PRN #20 tab 07/10/21 Insulin Glargine,Hum.rec.anlog [Lantus Solostar] 15 unit SQ DAILY #15 ml 07/10/21 Lancets [Blood Lancets] 1 each MC DAILY #100 each 07/10/21 Metformin HCl [Glucophage*] 500 mg PO BIDWM #60 tab 07/10/21 New Medications: Codeine/APAP [Tylenol W/Codeine #3 tab] 1 tab PO Q6HP PRN #20 tab PRN Reason: Pain Alcohol Antiseptic Pads [Alcohol Prep Pad] 1 each TP DAILY #100 med..pad Blood-Glucose Meter [Blood Glucose Monitoring] 1 each MC DAILY #1 kit Blood Sugar Diagnostic [Blood Glucose Test Strip] 1 each MC DAILY #30 strip Lancets [Blood Lancets] 1 each MC DAILY #100 each Metformin HCl [Glucophage*] 500 mg PO BIDWM #60 tab Insulin Glargine,Hum.rec.anlog [Lantus Solostar] 15 unit SQ DAILY #15 ml Physician Discharge Instructions: May shower Keep steri-strips on at all times Activity: No lifting more than 10 lbs Followup: NONE,NONE [Primary Care Provider] - Ben Peguero MD [ACTIVE - CAN ADMIT] - 1 Week Time spent managing pt's care (in minutes): 42
[2021-07-10 12:22] VITALS: BP 120/72; TEMP 98.1
--- NOTE | 2021-07-10 15:54 | PN ---
Date of Progress Note: 07/10/2021 Subjective: The patient is awake, alert, no complaints. Objective: Vital Signs: Stable, afebrile. Laboratory Data: Reviewed. His blood sugar is a little bit better. His abdomen is benign. Dressin g is clean, dry, and intact. Assessment: Status post laparoscopic cholecystectomy and newly diagnosed diabetic patient. Plan: The patient will be discharged home with diabetic instruction by Dr. Espinosa to follows up with me in a week and discharge instructions given. /MODL Voice ID: [id number] Report ID: [id number]
--- NOTE | 2021-07-10 22:09 | CON ---
Date of Consultation: 07/09/2021 Reason For Consultations: Preop risk assessment before gallbladder surgery. History Of Present Illness: This is a 35-year-old male who has no cardiac history, very active. He can jog and can run without limitations. Presented with gallbladder problem and I was asked to evalu ate him for preop risk assessment. He does not have any active symptoms, no chest pain, and no known history of coronary artery disease. Past Medical History: He is a smoker. Has history diabetes. Medications: Refer reconciliation sheet for detailed list. Allergies: PENICILLIN. Family History: No premature coronary artery disease or cancer. Social History: Smokes. Does not drink. Does not use any drugs. Review of Systems: All systems reviewed and they were negative except for mentioned in HPI. Physical Examination: Vital Signs: Reviewed. Head and Neck: Pupils are equal, reactive to light. Intact eye movements. No JVD. No cervical lym phadenopathy. Neck is supple. Thyroid is not enlarged. Lungs: Clear to auscultation bilaterally. No rhonchi, rales, or crackles. No accessory muscle use. Heart: Regular rate and rhythm. No extra sounds. Abdomen: Soft, nontender. Bowel sounds positive. No organomegaly. No masses or hernia. No rigidi ty or rebound. Extremities: No edema, clubbing, cyanosis. Intact pulses. Skin: No rashes noted. Neurologic: Alert, awake, oriented x3. No acute focal deficits appreciated. Investigations: Labs were reviewed. Assessment And Recommendation: Cardiac preop evaluation. This patient is very active, young, no aguila itation, can jog and run without symptoms. Definitely can do way more than 4 METs without limitation s, so he will be at low cardiac risk for the gallbladder surgery and to proceed without further cardi ac workup. Thank you for the consult. /GRATH Voice ID: [id number] Report ID: [id number]
== END 2021-07-10 13:17 | disposition home or self-care (01) | DRG 417 ==
LOC: ER 10:52 → ERHOLD 16:04 → 2ND 18:01 → 3RD-ICU 07-07 13:04 → 2ND 07-08 13:15
PROVIDERS: ADMIT Internal Medicine; ATTEND Internal Medicine
PROC: 0FT44ZZ Resection of Gallbladder, Percutaneous Endoscopic Approach (ICD-10-PCS; principal; 2021-07-09 07:45)
DX: K81.0 Acute cholecystitis (principal); E11.10 Type 2 diabetes mellitus with ketoacidosis without coma; E87.1 Hypo-osmolality and hyponatremia; K21.9 Gastro-esophageal reflux disease without esophagitis; K76.0 Fatty (change of) liver, not elsewhere classified; E66.9 Obesity, unspecified; Z68.37 Body mass index [BMI] 37.0-37.9, adult; M10.9 Gout, unspecified; F17.210 Nicotine dependence, cigarettes, uncomplicated; Z91.14 Patient's other noncompliance with medication regimen; Z88.0 Allergy status to penicillin; Z20.822 Contact with and (suspected) exposure to COVID-19
CPT/HCPCS: 0240U; 36415; 71045; 74177; 74181; 76705; 80048; 80076; 81003; 81015; 82010; 82805; 82947; 83036; 83690; 83735; 83880; 84100; 84132; 84484; 85025; 85610; 88304; 93005; 94010; 99285; C9113; J0694; J1170; J2250; J2270; J2405; J2550; J2704; J2710; J3010; J3480; J7030; J7040; J7042; Q9967

== ENCOUNTER 2023-07-01 23:24 | Emergency (ER) | payer OTHER ==
--- OUTSIDE RECORDS SUMMARY | 2023-07-01 23:29 | XMS REPORT | Continuity of Care Document ---
Author Name Unknown Address [address] [facility] [address] [place] [address] [facility] thconnect Address [address] [facility] [address] [place] [address] Care Team Providers Care Food Sanitarian Name Role Phone Kristina SANTOS, Jb Burt Primary Care Physician JB FLORES Attending Clinician UnaJb Fernández MD Attending Clinician + [phone] FABY BUENROSTRO Attending Clinician Unavailable RIN BARON Attending Clinician Unavailable RIN BARON Attending Clinician Unavailable Lab, Ang - Db Attending Clinician Unavailable Doctor Unassigned, [place] Attending Clinician U layne Shields RN, Jesica Zhang Attending Clinician UnaSUPRIYA Garcia Attending Clinician Unavailable SUPRIYA CONCEPCION Attending Clinician Unavailable Faby Cummins Attending Clinician [phone] SIXTO BRADFORD Attending Clinician Unavailable Miriam Worthington MA Attending Clinician Unavailantwon ble Payers Payer Name Policy Type Policy Number Effective Date Expirati on Date Source [facility] [id number] 2018 00:00:00 Problems Condition Name Condition Details Condition Category Status Onset Date Resolution Date Last Treatment Date Treating Clinician Comments Source Diverticul itis Diverticul itis Disease Active 2021-06- 00:00: 00 [facility] Hospital discharge follow-up Hospital discharge follow-up Disease Active 2021-06-18 00:00: 00 [facility] Decreased libido Decreased libido Disease Active - 00:00: 00 [facility] BMI 37.0-37.9, adult BMI 37.0-37.9, adult Disease Active 9-19 00:00: 00 [facility] Anxiety Anxiety Disease Active 6- 00:00: 00 [facility] Wellness examinatio n Wellness examinatio n Disease Active 3-14 00:00: 00 [facility] Type 2 diabetes mellitus with hyperglyce marge, with long-term current use of insulin Type 2 diabetes mellitus with hyperglyce marge, with long-term current use of insulin Disease Active 08-23 00:00: 00 [facility] Chronic frontal sinusitis Chronic frontal sinusitis Disease Active 08-16 00:00: 00 [facility] Chronic gouty arthritis Chronic gouty arthritis Disease Active 08-16 00:00: 00 [facility] Essential hypertensi on Essential hypertensi on Disease Active 08-16 00:00: 00 [facility] Type 2 diabetes mellitus with hyperglyce marge, without long-term current use of insulin Type 2 diabetes mellitus with hyperglyce marge, without long-term current use of insulin Disease Active 08-10 00:00: 00 [facility] Muscle cramps Muscle cramps Disease Active 3 00:00: 00 [facility] Class 2 severe obesity due to excess calories with serious comorbidit y and body mass index (BMI) of 36.0 to 36.9 in adult Class 2 severe obesity due to excess calories with serious comorbidit y and body mass index (BMI) of 36.0 to 36.9 in adult Disease Active 3- 00:00: 00 [facility] Body mass index (BMI) 40.0-44.9, adult Body mass index (BMI) 40.0-44.9, adult Disease Active 2- 00:00: 00 [facility] Type 2 diabetes mellitus without complicati on, without long-term current use of insulin Type 2 diabetes mellitus without complicati on, without long-term current use of insulin Disease Active 07-13 00:00: 00 [facility] Hx of cholecyste ctomy Hx of cholecyste ctomy Disease Active 07-13 00:00: 00 [facility] Acanthosis nigricans Acanthosis nigricans Disease Active 2016-06 00:00: 00 [facility] Attention deficit disorder Attention deficit disorder Disease Active 2016-06 00:00: 00 [facility] Gout Gout Disease Active 09-02 00:00: 00 [facility] Panic disorder Panic disorder Disease Active 2014-06 00:00: 00 [facility] Allergies, Adverse Reactions, Alerts Allergy Name Allergy Type Status Severity Reaction(s) Onset Date Inactive Date Treating Clinician Comments Source Penicill in Propensi ty to adverse reaction s Active Other - See comments 07-13 00:00: [address] [facility] PENICILL IN DRUG INGREDI Active Other-Cmnt 07-13 00:00: 00 [facility] Social History Social Habit Start Date Stop Date Quantity Comments Source [facility] 2023-05-15 00:00:00 2023-05-15 00:00:00 Lifetime non-drinker (finding) [facility] History of Social function 2023-05-15 00:00:00 2023-05-15 00:00:00 [facility] Exposure to SARS-CoV-2 (event) 2022-10-29 00:00:00 2022-11-08 08:42:00 Not sure [facility] Tobacco use and exposure 2021-07-13 00:00:00 2021-07-13 00:00:00 Smokeless tobacco non-user [facility] Sex Assigned At 1985 00:00:00 1985 00:00:00 [facility] Smoking Status Start Date Stop Date Source Never smoked tobacco [facility] Medications Ordered Medication Name Filled Medication Name Start Date Stop Date Current Medication? Ordering Clinician Indication Dosage Frequency Signature (SIG) Comments Components Source allopurinoL 300 mg tablet 2022-06 10:57: 11 05-15 00:00 :00 No 300mg Take 1 tablet by mouth in the morning. [facility] allopurinoL 300 mg tablet 2022-06 10:57: 11 05-15 00:00 :00 No 300mg Take 1 tablet by mouth in the morning. [facility] allopurinoL 300 mg tablet 2022-06 10:57: 11 05-15 00:00 :00 No 300mg Take 1 tablet by mouth in the morning. [facility] ALPRAZolam 1 mg tablet 2022-06 00:00: 00 Yes [id number] 1mg Take 1 tablet by mouth in the morning and 1 tablet in the evening. [facility] allopurinoL 300 mg tablet 2022-06 00:00: 00 Yes [id number] 300mg Take 1 tablet by mouth in the morning. [facility] ALPRAZolam 1 mg tablet 2022-06 00:00: 00 Yes [id number] 1mg Take 1 tablet by mouth in the morning and 1 tablet in the evening. [facility] allopurinoL 300 mg tablet 2022-06 00:00: 00 Yes [id number] 300mg Take 1 tablet by mouth in the morning. [facility] ALPRAZolam 1 mg tablet 2022-06 00:00: 00 Yes [id number] 1mg Take 1 tablet by mouth in the morning and 1 tablet in the evening. [facility] allopurinoL 300 mg tablet 2022-06 00:00: 00 Yes [id number] 300mg Take 1 tablet by mouth in the morning. [facility] ALPRAZolam 1 mg tablet 0 11-08 00:00: 00 Yes [id number] 1mg Take 1 tablet by mouth in the morning and 1 tablet in the evening. [facility] ALPRAZolam 1 mg tablet 2022-0 11-08 00:00: 00 Yes [id number] 1mg Take 1 tablet by mouth in the morning and 1 tablet in the evening. [facility] ALPRAZolam 1 mg tablet 2022-0 11-08 00:00: 00 Yes [id number] 1mg Take 1 tablet by mouth in the morning and 1 tablet in the evening. [facility] ALPRAZolam 1 mg tablet 11-08 00:00: 00 05-15 00:00 :00 No [id number] 1mg Take 1 tablet by mouth in the morning and 1 tablet in the evening. [facility] ALPRAZolam 1 mg tablet 11-08 00:00: 00 05-15 00:00 :00 No [id number] 1mg Take 1 tablet by mouth in the morning and 1 tablet in the evening. [facility] ALPRAZolam 1 mg tablet 11-08 00:00: 00 05-15 00:00 :00 No [id number] 1mg Take 1 tablet by mouth in the morning and 1 tablet in the evening. [facility] allopurinoL 300 mg tablet 2021-06 13:50: 56 05-11 00:00 :[address] [facility] allopurinoL 300 mg tablet 2021-06 13:50: 56 05-11 00:00 :[address] [facility] ALPRAZolam 1 mg tablet 2021-06 00:00: 00 Yes [id number] 1mg Take 1 tablet by mouth in the morning and 1 tablet in the evening. [facility] ALPRAZolam 1 mg tablet 2021-06 00:00: 00 Yes [id number] 1mg Take 1 tablet by mouth in the morning and 1 tablet in the evening. [facility] ALPRAZolam 1 mg tablet 2021-06 00:00: 00 Yes [id number] 1mg Take 1 tablet by mouth in the morning and 1 tablet in the evening. [facility] ALPRAZolam 1 mg tablet 2021-06 00:00: 00 Yes [id number] 1mg Take 1 tablet by mouth in the morning and 1 tablet in the evening. [facility] ALPRAZolam 1 mg tablet 2021-06 00:00: 00 11-08 00:00 :00 No [id number] 1mg Take 1 tablet by mouth in the morning and 1 tablet in the evening. [facility] ALPRAZolam 1 mg tablet 2021-06 00:00: 00 11-08 00:00 :00 No [id number] 1mg Take 1 tablet by mouth in the morning and 1 tablet in the evening. [facility] colchicine (MITIGARE) 0.6 mg Cap 2021-0 - 00:00: 00 Yes [id number] .6mg Take 0.6 mg by mouth as needed for Other (Take 2 tabs on onset of gout then repeat 1 tab an hour later. Max of 1.8mg in 24 hrs.). Take 2 tabs on onset of gout then repeat 1 tab an hour later. Max of 1.8mg in [address] [facility] colchicine (MITIGARE) 0.6 mg Cap 2021-0 - 00:00: 00 Yes [id number] .6mg Take 0.6 mg by mouth as needed for Other (Take 2 tabs on onset of gout then repeat 1 tab an hour later. Max of 1.8mg in 24 hrs.). Take 2 tabs on onset of gout then repeat 1 tab an hour later. Max of 1.8mg in [address] [facility] colchicine (MITIGARE) 0.6 mg Cap 2021-0 - 00:00: 00 Yes [id number] .6mg Take 0.6 mg by mouth as needed for Other (Take 2 tabs on onset of gout then repeat 1 tab an hour later. Max of 1.8mg in 24 hrs.). Take 2 tabs on onset of gout then repeat 1 tab an hour later. Max of 1.8mg in [address] [facility] colchicine (MITIGARE) 0.6 mg Cap 2021-0 6-20 00:00: 00 Yes [id number] .6mg Take 0.6 mg by mouth as needed for Other (Take 2 tabs on onset of gout then repeat 1 tab an hour later. Max of 1.8mg in 24 hrs.). Take 2 tabs on onset of gout then repeat 1 tab an hour later. Max of 1.8mg in [address] [facility] colchicine (MITIGARE) 0.6 mg Cap 2021-0 - 00:00: 00 Yes [id number] .6mg Take 0.6 mg by mouth as needed for Other (Take 2 tabs on onset of gout then repeat 1 tab an hour later. Max of 1.8mg in 24 hrs.). Take 2 tabs on onset of gout then repeat 1 tab an hour later. Max of 1.8mg in [address] [facility] colchicine (MITIGARE) 0.6 mg Cap 2021-0 - 00:00: 00 Yes [id number] .6mg Take 0.6 mg by mouth as needed for Other (Take 2 tabs on onset of gout then repeat 1 tab an hour later. Max of 1.8mg in 24 hrs.). Take 2 tabs on onset of gout then repeat 1 tab an hour later. Max of 1.8mg in [address] [facility] colchicine (MITIGARE) 0.6 mg Cap 2021-0 - 00:00: 00 Yes [id number] .6mg Take 0.6 mg by mouth as needed for Other (Take 2 tabs on onset of gout then repeat 1 tab an hour later. Max of 1.8mg in 24 hrs.). Take 2 tabs on onset of gout then repeat 1 tab an hour later. Max of 1.8mg in [address] [facility] colchicine (MITIGARE) 0.6 mg Cap 2021-0 - 00:00: 00 Yes [id number] .6mg Take 0.6 mg by mouth as needed for Other (Take 2 tabs on onset of gout then repeat 1 tab an hour later. Max of 1.8mg in 24 hrs.). Take 2 tabs on onset of gout then repeat 1 tab an hour later. Max of 1.8mg in [address] [facility] colchicine (MITIGARE) 0.6 mg Cap 2021-0 - 00:00: 00 Yes [id number] .6mg Take 0.6 mg by mouth as needed for Other (Take 2 tabs on onset of gout then repeat 1 tab an hour later. Max of 1.8mg in 24 hrs.). Take 2 tabs on onset of gout then repeat 1 tab an hour later. Max of 1.8mg in [address] [facility] colchicine (MITIGARE) 0.6 mg Cap 2021-0 11-29 00:00: 00 05-11 00:00 :00 No [id number] .6mg Take 0.6 mg by mouth as needed for Other (Take 2 tabs on onset of gout then repeat 1 tab an hour later. Max of 1.8mg in 24 hrs.). Take 2 tabs on onset of gout then repeat 1 tab an hour later. Max of 1.8mg in 24 hrs. [facility] colchicine (MITIGARE) 0.6 mg Cap 2021-0 - 00:00: 00 05-11 00:00 :00 No [id number] .6mg Take 0.6 mg by mouth as needed for Other (Take 2 tabs on onset of gout then repeat 1 tab an hour later. Max of 1.8mg in 24 hrs.). Take 2 tabs on onset of gout then repeat 1 tab an hour later. Max of 1.8mg in 24 hrs. [facility] allopurinoL 300 mg tablet 2021-0 11-17 16:01: 36 Yes 1 tablet [facility] allopurinoL 300 mg tablet 0 11-17 16:01: 36 Yes 1 tablet [facility] allopurinoL 300 mg tablet 0 11-17 16:01: 36 Yes 1 tablet [facility] allopurinoL 300 mg tablet 0 11-17 16:01: 36 Yes 1 tablet [facility] allopurinoL 300 mg tablet 0 11-17 16:01: 36 Yes 1 tablet [facility] allopurinoL 300 mg tablet 2021-0 11-17 16:01: 36 Yes 1 tablet [facility] allopurinoL 300 mg tablet 2021-0 11-17 16:01: 36 Yes 1 tablet [facility] allopurinoL 300 mg tablet 0 11-17 16:01: 36 Yes [address] [facility] allopurinoL 300 mg tablet 0 11-17 16:01: 36 Yes 1 tablet [facility] ALPRAZolam 1 mg tablet 0 11-17 00:00: 00 Yes [id number] 1mg Take 1 tablet by mouth 2 (two) times daily. [facility] ALPRAZolam 1 mg tablet 2021-0 6-08 00:00: 00 Yes [id number] 1mg Take 1 tablet by mouth 2 (two) times daily. [facility] ALPRAZolam 1 mg tablet 2021-0 6-08 00:00: 00 Yes [id number] 1mg Take 1 tablet by mouth 2 (two) times daily. [facility] ALPRAZolam 1 mg tablet 2021-0 -08 00:00: 00 Yes [id number] 1mg Take 1 tablet by mouth 2 (two) times daily. [facility] ALPRAZolam 1 mg tablet 2021-0 08 00:00: 00 Yes [id number] 1mg Take 1 tablet by mouth 2 (two) times daily. [facility] ALPRAZolam 1 mg tablet 2021-0 -08 00:00: 00 Yes [id number] 1mg Take 1 tablet by mouth 2 (two) times daily. [facility] ALPRAZolam 1 mg tablet 2021-0 11-17 00:00: 00 Yes [id number] 1mg Take 1 tablet by mouth 2 (two) times daily. [facility] ALPRAZolam 1 mg tablet 2021-0 08 00:00: 00 Yes [id number] 1mg Take 1 tablet by mouth 2 (two) times daily. [facility] ALPRAZolam 1 mg tablet 2021-0 08 00:00: 00 Yes [id number] 1mg Take 1 tablet by mouth 2 (two) times daily. [facility] ALPRAZolam 1 mg tablet 2021-0 08 00:00: 00 05-11 00:00 :00 No [id number] 1mg Take 1 tablet by mouth 2 (two) times daily. [facility] ALPRAZolam 1 mg tablet 2021-0 08 00:00: 00 05-11 00:00 :00 No [id number] 1mg Take 1 tablet by mouth 2 (two) times daily. [facility] metFORMIN 1,000 mg tablet 202111-10 00:00: 00 Yes [id number] 1000mg Take 1 tablet by mouth 2 (two) times daily with meals. [facility] Insulin Glargine (LANTUS SOLOSTAR U-100 INSULIN) 100 unit/mL (3 mL) injection 11-10 00:00: 00 Yes [id number] 30U inject 30 Units under the skin daily. [facility] metFORMIN 1,000 mg tablet 11-10 00:00: 00 Yes [id number] 1000mg Take 1 tablet by mouth 2 (two) times daily with meals. [facility] Insulin Glargine (LANTUS SOLOSTAR U-100 INSULIN) 100 unit/mL (3 mL) injection 11-10 00:00: 00 Yes [id number] 30U inject 30 Units under the skin daily. [facility] metFORMIN 1,000 mg tablet 11-10 00:00: 00 Yes [id number] 1000mg Take 1 tablet by mouth 2 (two) times daily with meals. [facility] Insulin Glargine (LANTUS SOLOSTAR U-100 INSULIN) 100 unit/mL (3 mL) injection 11-10 00:00: 00 Yes [id number] 30U inject 30 Units under the skin daily. [facility] metFORMIN 1,000 mg tablet 11-10 00:00: 00 Yes [id number] 1000mg Take 1 tablet by mouth 2 (two) times daily with meals. [facility] Insulin Glargine (LANTUS SOLOSTAR U-100 INSULIN) 100 unit/mL (3 mL) injection 11-10 00:00: 00 Yes [id number] 30U inject 30 Units under the skin daily. [facility] metFORMIN 1,000 mg tablet 11-10 00:00: 00 Yes [id number] 1000mg Take 1 tablet by mouth 2 (two) times daily with meals. [facility] Insulin Glargine (LANTUS SOLOSTAR U-100 INSULIN) 100 unit/mL (3 mL) injection 11-10 00:00: 00 Yes [id number] 30U inject 30 Units under the skin daily. [facility] metFORMIN 1,000 mg tablet 11-10 00:00: 00 Yes [id number] 1000mg Take 1 tablet by mouth 2 (two) times daily with meals. [facility] Insulin Glargine (LANTUS SOLOSTAR U-100 INSULIN) 100 unit/mL (3 mL) injection 11-10 00:00: 00 Yes [id number] 30U inject 30 Units under the skin daily. [facility] metFORMIN 1,000 mg tablet 11-10 00:00: 00 Yes [id number] 1000mg Take 1 tablet by mouth 2 (two) times daily with meals. [facility] Insulin Glargine (LANTUS SOLOSTAR U-100 INSULIN) 100 unit/mL (3 mL) injection 11-10 00:00: 00 Yes [id number] 30U inject 30 Units under the skin daily. [facility] metFORMIN 1,000 mg tablet 11-10 00:00: 00 Yes [id number] 1000mg Take 1 tablet by mouth 2 (two) times daily with meals. [facility] Insulin Glargine (LANTUS SOLOSTAR U-100 INSULIN) 100 unit/mL (3 mL) injection 11-10 00:00: 00 Yes [id number] 30U inject 30 Units under the skin daily. [facility] metFORMIN 1,000 mg tablet 11-10 00:00: 00 Yes [id number] 1000mg Take 1 tablet by mouth 2 (two) times daily with meals. [facility] Insulin Glargine (LANTUS SOLOSTAR U-100 INSULIN) 100 unit/mL (3 mL) injection 11-10 00:00: 00 Yes [id number] 30U inject 30 Units under the skin daily. [facility] metFORMIN 1,000 mg tablet 11-10 00:00: 00 Yes [id number] 1000mg Take 1 tablet by mouth 2 (two) times daily with meals. [facility] Insulin Glargine (LANTUS SOLOSTAR U-100 INSULIN) 100 unit/mL (3 mL) injection 11-10 00:00: 00 Yes [id number] 30U inject 30 Units under the skin daily. [facility] metFORMIN 1,000 mg tablet 11-10 00:00: 00 Yes [id number] 1000mg Take 1 tablet by mouth 2 (two) times daily with meals. [facility] Insulin Glargine (LANTUS SOLOSTAR U-100 INSULIN) 100 unit/mL (3 mL) injection 11-10 00:00: 00 Yes [id number] 30U inject 30 Units under the skin daily. [facility] metFORMIN 1,000 mg tablet 11-10 00:00: 00 Yes [id number] 1000mg Take 1 tablet by mouth 2 (two) times daily with meals. [facility] Insulin Glargine (LANTUS SOLOSTAR U-100 INSULIN) 100 unit/mL (3 mL) injection 11-10 00:00: 00 Yes [id number] 30U inject 30 Units under the skin daily. [facility] metFORMIN 1,000 mg tablet 11-10 00:00: 00 Yes [id number] 1000mg Take 1 tablet by mouth 2 (two) times daily with meals. [facility] Insulin Glargine (LANTUS SOLOSTAR U-100 INSULIN) 100 unit/mL (3 mL) injection 11-10 00:00: 00 Yes [id number] 30U inject 30 Units under the skin daily. [facility] metFORMIN 1,000 mg tablet 11-10 00:00: 00 Yes [id number] 1000mg Take 1 tablet by mouth 2 (two) times daily with meals. [facility] Insulin Glargine (LANTUS SOLOSTAR U-100 INSULIN) 100 unit/mL (3 mL) injection 11-10 00:00: 00 Yes [id number] 30U inject 30 Units under the skin daily. [facility] Insulin Glargine (LANTUS SOLOSTAR U-100 INSULIN) 100 unit/mL (3 mL) injection 11-10 00:00: 00 Yes [id number] 30U inject 30 Units under the skin daily. [facility] Insulin Glargine (LANTUS SOLOSTAR U-100 INSULIN) 100 unit/mL (3 mL) injection 11-10 00:00: 00 Yes [id number] 30U inject 30 Units under the skin daily. [facility] Insulin Glargine (LANTUS SOLOSTAR U-100 INSULIN) 100 unit/mL (3 mL) injection 11-10 00:00: 00 Yes [id number] 30U inject 30 Units under the skin daily. [facility] Insulin Glargine (LANTUS SOLOSTAR U-100 INSULIN) 100 unit/mL (3 mL) injection 11-10 00:00: 00 05-15 00:00 :00 No [id number] 30U inject 30 Units under the skin daily. [facility] Insulin Glargine (LANTUS SOLOSTAR U-100 INSULIN) 100 unit/mL (3 mL) injection 11-10 00:00: 00 05-15 00:00 :00 No [id number] 30U inject 30 Units under the skin daily. [facility] Insulin Glargine (LANTUS SOLOSTAR U-100 INSULIN) 100 unit/mL (3 mL) injection 11-10 00:00: 00 05-15 00:00 :00 No [id number] 30U inject 30 Units under the skin daily. [facility] metFORMIN 1,000 mg tablet 11-10 00:00: 00 11-08 00:00 :00 No [id number] 1000mg Take 1 tablet by mouth 2 (two) times daily with meals. [facility] metFORMIN 1,000 mg tablet 11-10 00:00: 00 11-08 00:00 :00 No [id number] 1000mg Take 1 tablet by mouth 2 (two) times daily with meals. [facility] furosemide 20 mg tablet -14 08:06: [address] [facility] furosemide 20 mg tablet 3-14 08:06: [address] [facility] furosemide 20 mg tablet 2022-0 3-14 08:06: 01 Yes 1 tablet [facility] furosemide 20 mg tablet 2-0 3-14 08:06: 01 Yes 1 tablet [facility] furosemide 20 mg tablet 2021-0 3-14 08:06: 01 Yes 1 tablet [facility] furosemide 20 mg tablet 2021-0 3-14 08:06: 01 Yes 1 tablet [facility] furosemide 20 mg tablet 2021-0 3-14 08:06: 01 Yes 1 tablet [facility] furosemide 20 mg tablet 2021-0 3-14 08:06: 01 Yes 1 tablet [facility] furosemide 20 mg tablet 2021-0 314 08:06: 01 Yes 1 tablet [facility] furosemide 20 mg tablet 2021-0 3-14 08:06: 01 Yes 1 tablet [facility] furosemide 20 mg tablet 2021-0 314 08:06: 01 Yes 1 tablet [facility] furosemide 20 mg tablet 2021-0 3-14 08:06: 01 Yes 1 tablet [facility] furosemide 20 mg tablet 2021-0 3-14 08:06: 01 Yes 1 tablet [facility] furosemide 20 mg tablet 2021-0 3-14 08:06: 01 Yes 1 tablet [facility] furosemide 20 mg tablet 2021-0 3-14 08:06: 01 Yes 1 tablet [facility] furosemide 20 mg tablet 2021-0 3-14 08:06: 01 Yes 1 tablet [facility] furosemide 20 mg tablet 2021-0 3-14 08:06: 01 Yes 1 tablet [facility] furosemide 20 mg tablet 2021-0 3-14 08:06: 01 Yes 1 tablet [facility] furosemide 20 mg tablet 2021-0 3-14 08:06: 01 Yes 1 tablet [facility] furosemide 20 mg tablet 2021-0 3-14 08:06: 01 Yes 1 tablet [facility] atorvastati n 20 mg tablet 2-0 2-01 00:00: 00 Yes [id number] 20mg Take 1 tablet by mouth every evening. [facility] atorvastati n 20 mg tablet 2 00:00: 00 Yes [id number] 20mg Take 1 tablet by mouth every evening. [facility] atorvastati n 20 mg tablet 2 00:00: 00 Yes [id number] 20mg Take 1 tablet by mouth every evening. [facility] atorvastati n 20 mg tablet 2 00:00: 00 Yes [id number] 20mg Take 1 tablet by mouth every evening. [facility] n 20 mg tablet 2 00:00: 00 Yes [id number] 20mg Take 1 tablet by mouth every evening. [facility] 20 mg tablet 07-13 00:00: 00 Yes [id number] 20mg Take 1 tablet by mouth every evening. [facility] 20 mg tablet 07-13 00:00: 00 Yes [id number] 20mg Take 1 tablet by mouth every evening. [facility] 20 mg tablet 07-13 00:00: 00 Yes [id number] 20mg Take 1 tablet by mouth every evening. [facility] 20 mg tablet 07-13 00:00: 00 Yes [id number] 20mg Take 1 tablet by mouth every evening. [facility] 20 mg tablet 2 00:00: 00 Yes [id number] 20mg Take 1 tablet by mouth every evening. [facility] 20 mg tablet 2 00:00: 00 Yes [id number] 20mg Take 1 tablet by mouth every evening. [facility] 20 mg tablet 2 00:00: 00 Yes [id number] 20mg Take 1 tablet by mouth every evening. [facility] 20 mg tablet 2 00:00: 00 Yes [id number] 20mg Take 1 tablet by mouth every evening. [facility] 20 mg tablet 2- 00:00: 00 Yes [id number] 20mg Take 1 tablet by mouth every evening. [facility] 20 mg tablet 2- 00:00: 00 11-08 00:00 :00 No [id number] 20mg Take 1 tablet by mouth every evening. [facility] 20 mg tablet 07-13 00:00: 00 11-08 00:00 :00 No [id number] 20mg Take 1 tablet by mouth every evening. [facility] TRUE METRIX GLUCOSE TEST STRIP strip 07-10 00:00: [address] EVERY [address] [facility] TRUE METRIX GLUCOSE METER Misc 07-10 00:00: [address] EVERY [address] [facility] MICRO THIN LANCETS 33 gauge Misc 07-10 00:00: 00 [address] USE EVERY DAY [facility] BD GEOVANNY 2ND GEN PEN NEEDLE 32 gauge x 5/32" Ndle 07-10 00:00: [address] EVERY [address] [facility] TRUE METRIX GLUCOSE TEST STRIP strip 07-10 00:00: [address] USE EVERY DAY [facility] TRUE METRIX GLUCOSE METER Misc 07-10 00:00: [address] EVERY [address] [facility] MICRO THIN LANCETS 33 gauge Misc 07-10 00:00: 00 [address] USE EVERY DAY [facility] BD GEOVANNY 2ND GEN PEN NEEDLE 32 gauge x 5/32" Ndle 07-10 00:00: [address] EVERY [address] [facility] TRUE METRIX GLUCOSE TEST STRIP strip 07-10 00:00: [address] EVERY [address] [facility] TRUE METRIX GLUCOSE METER Misc 07-10 00:00: [address] [facility] MICRO THIN LANCETS 33 gauge Misc 07-10 00:00: 00 Yes USE EVERY DAY [facility] BD GEOVANNY 2ND GEN PEN NEEDLE 32 gauge x 5/32" Ndle 0 07-10 00:00: 00 Yes USE EVERY DAY [facility] TRUE METRIX GLUCOSE TEST STRIP strip 0 07-10 00:00: 00 Yes USE EVERY DAY [facility] TRUE METRIX GLUCOSE METER Misc 0 07-10 00:00: 00 Yes USE EVERY DAY [facility] MICRO THIN LANCETS 33 gauge Misc 07-10 00:00: 00 Yes USE EVERY DAY [facility] BD GEOVANNY 2ND GEN PEN NEEDLE 32 gauge x 5/32" Ndle 07-10 00:00: 00 Yes USE EVERY DAY [facility] TRUE METRIX GLUCOSE TEST STRIP strip 07-10 00:00: 00 Yes USE EVERY DAY [facility] TRUE METRIX GLUCOSE METER Misc 0 07-10 00:00: 00 Yes USE EVERY DAY [facility] MICRO THIN LANCETS 33 gauge Misc 0 07-10 00:00: 00 Yes USE EVERY DAY [facility] BD GEOVANNY 2ND GEN PEN NEEDLE 32 gauge x 5/32" Ndle 07-10 00:00: 00 Yes USE EVERY DAY [facility] TRUE METRIX GLUCOSE TEST STRIP strip 07-10 00:00: 00 Yes USE EVERY DAY [facility] TRUE METRIX GLUCOSE METER Misc 0 07-10 00:00: 00 Yes USE EVERY DAY [facility] MICRO THIN LANCETS 33 gauge Misc 0 07-10 00:00: 00 Yes USE EVERY DAY [facility] BD GEOVANNY 2ND GEN PEN NEEDLE 32 gauge x 5/32" Ndle 07-10 00:00: 00 Yes USE EVERY DAY [facility] TRUE METRIX GLUCOSE TEST STRIP strip 0 07-10 00:00: 00 Yes USE EVERY DAY [facility] TRUE METRIX GLUCOSE METER Misc 0 07-10 00:00: 00 Yes USE EVERY DAY [facility] MICRO THIN LANCETS 33 gauge Misc 07-10 00:00: 00 Yes USE EVERY DAY [facility] BD GEOVANNY 2ND GEN PEN NEEDLE 32 gauge x 5/32" Ndle 07-10 00:00: 00 Yes USE EVERY DAY [facility] TRUE METRIX GLUCOSE TEST STRIP strip 07-10 00:00: 00 Yes USE EVERY DAY [facility] TRUE METRIX GLUCOSE METER Misc 07-10 00:00: 00 Yes USE EVERY DAY [facility] MICRO THIN LANCETS 33 gauge Misc 07-10 00:00: 00 Yes USE EVERY DAY [facility] BD GEOVANNY 2ND GEN PEN NEEDLE 32 gauge x 5/32" Ndle 07-10 00:00: 00 Yes USE EVERY DAY [facility] TRUE METRIX GLUCOSE TEST STRIP strip 07-10 00:00: 00 Yes USE EVERY DAY [facility] TRUE METRIX GLUCOSE METER Misc 0 07-10 00:00: 00 Yes USE EVERY DAY [facility] MICRO THIN LANCETS 33 gauge Misc 07-10 00:00: 00 Yes USE EVERY DAY [facility] BD GEOVANNY 2ND GEN PEN NEEDLE 32 gauge x 5/32" Ndle 07-10 00:00: 00 Yes USE EVERY DAY [facility] TRUE METRIX GLUCOSE TEST STRIP strip 07-10 00:00: 00 Yes USE EVERY DAY [facility] TRUE METRIX GLUCOSE METER Misc 0 07-10 00:00: 00 Yes USE EVERY DAY [facility] MICRO THIN LANCETS 33 gauge Misc 0 07-10 00:00: 00 Yes USE EVERY DAY [facility] BD GEOVANNY 2ND GEN PEN NEEDLE 32 gauge x 5/32" Ndle 07-10 00:00: 00 Yes USE EVERY DAY [facility] TRUE METRIX GLUCOSE TEST STRIP strip 0 07-10 00:00: 00 Yes USE EVERY DAY [facility] TRUE METRIX GLUCOSE METER Misc 0 07-10 00:00: 00 Yes USE EVERY DAY [facility] MICRO THIN LANCETS 33 gauge Misc 0 07-10 00:00: 00 Yes USE EVERY DAY [facility] BD GEOVANNY 2ND GEN PEN NEEDLE 32 gauge x 5/32" Ndle 0 07-10 00:00: 00 Yes USE EVERY DAY [facility] TRUE METRIX GLUCOSE TEST STRIP strip 0 07-10 00:00: 00 Yes USE EVERY DAY [facility] TRUE METRIX GLUCOSE METER Misc 0 07-10 00:00: 00 Yes USE EVERY DAY [facility] MICRO THIN LANCETS 33 gauge Misc 0 07-10 00:00: 00 Yes USE EVERY DAY [facility] BD GEOVANNY 2ND GEN PEN NEEDLE 32 gauge x 5/32" Ndle 0 07-10 00:00: 00 Yes USE EVERY DAY [facility] TRUE METRIX GLUCOSE TEST STRIP strip 0 07-10 00:00: 00 Yes USE EVERY DAY [facility] TRUE METRIX GLUCOSE METER Misc 0 07-10 00:00: 00 Yes USE EVERY DAY [facility] MICRO THIN LANCETS 33 gauge Misc 07-10 00:00: 00 Yes USE EVERY DAY [facility] BD GEOVANNY 2ND GEN PEN NEEDLE 32 gauge x 5/32" Ndle 07-10 00:00: 00 Yes USE EVERY DAY [facility] TRUE METRIX GLUCOSE TEST STRIP strip 0 07-10 00:00: 00 Yes USE EVERY DAY [facility] TRUE METRIX GLUCOSE METER Misc 0 07-10 00:00: 00 Yes USE EVERY DAY [facility] MICRO THIN LANCETS 33 gauge Misc 0 07-10 00:00: 00 Yes USE EVERY DAY [facility] BD GEOVANNY 2ND GEN PEN NEEDLE 32 gauge x 5/32" Ndle 2021-0 07-10 00:00: 00 Yes USE EVERY DAY [facility] TRUE METRIX GLUCOSE TEST STRIP strip 0 07-10 00:00: 00 Yes USE EVERY DAY [facility] TRUE METRIX GLUCOSE METER Misc 0 07-10 00:00: 00 Yes USE EVERY DAY [facility] MICRO THIN LANCETS 33 gauge Misc 0 07-10 00:00: 00 Yes USE EVERY DAY [facility] BD GEOVANNY 2ND GEN PEN NEEDLE 32 gauge x 5/32" Ndle 0 07-10 00:00: 00 Yes USE EVERY DAY [facility] TRUE METRIX GLUCOSE TEST STRIP strip 0 07-10 00:00: 00 Yes USE EVERY DAY [facility] TRUE METRIX GLUCOSE METER Misc 0 07-10 00:00: 00 Yes USE EVERY DAY [facility] MICRO THIN LANCETS 33 gauge Misc 0 07-10 00:00: 00 Yes USE EVERY DAY [facility] BD GEOVANNY 2ND GEN PEN NEEDLE 32 gauge x 5/32" Ndle 0 07-10 00:00: 00 Yes USE EVERY DAY [facility] TRUE METRIX GLUCOSE TEST STRIP strip 07-10 00:00: 00 Yes USE EVERY DAY [facility] TRUE METRIX GLUCOSE METER Misc 0 07-10 00:00: 00 Yes USE EVERY DAY [facility] MICRO THIN LANCETS 33 gauge Misc 0 07-10 00:00: 00 Yes USE EVERY DAY [facility] BD GEOVANNY 2ND GEN PEN NEEDLE 32 gauge x 5/32" Ndle 07-10 00:00: 00 Yes USE EVERY DAY [facility] TRUE METRIX GLUCOSE TEST STRIP strip 0 07-10 00:00: 00 Yes USE EVERY DAY [facility] TRUE METRIX GLUCOSE METER Misc 0 07-10 00:00: 00 Yes USE EVERY DAY [facility] MICRO THIN LANCETS 33 gauge Misc 0 07-10 00:00: 00 Yes USE EVERY DAY [facility] BD GEOVANNY 2ND GEN PEN NEEDLE 32 gauge x 5/32" Ndle 0 07-10 00:00: 00 [facility] METRIX GLUCOSE TEST STRIP strip 07-10 00:00: 00 [facility] TRUE METRIX GLUCOSE METER Misc 07-10 00:00: 00 Yes USE EVERY DAY [facility] MICRO THIN LANCETS 33 gauge Misc 07-10 00:00: 00 Yes USE EVERY DAY [facility] BD GEOVANNY 2ND GEN PEN NEEDLE 32 gauge x 5/32" Ndle 07-10 00:00: 00 [facility] TRUE METRIX GLUCOSE TEST STRIP strip 07-10 00:00: 00 Yes USE EVERY DAY [facility] TRUE METRIX GLUCOSE METER Misc 07-10 00:00: 00 Yes USE EVERY DAY [facility] MICRO THIN LANCETS 33 gauge Misc 07-10 00:00: 00 Yes USE EVERY DAY [facility] BD GEOVANNY 2ND GEN PEN NEEDLE 32 gauge x 5/32" Ndle 07-10 00:00: 00 Yes USE EVERY DAY [facility] Immunizations Ordered Immunization Name Filled Immunization Name Date Status Comments Source SARS-COV-2 COVID-19 MODERNA 0.25ML BOOSTER VACCINE 2021-08-23 00:00:00 Completed [facility] SARS-COV-2 COVID-19 MODERNA 0.25ML BOOSTER VACCINE 2021-08-23 00:00:00 Completed [facility] SARS-COV-2 COVID-19 MODERNA 0.25ML BOOSTER VACCINE 2021-08-23 00:00:00 Completed [facility] SARS-COV-2 COVID-19 MODERNA 0.25ML BOOSTER VACCINE 2021-08-23 00:00:00 Completed [facility] SARS-COV-2 COVID-19 MODERNA 0.25ML BOOSTER VACCINE 2021-08-23 00:00:00 Completed [facility] SARS-COV-2 COVID-19 MODERNA 0.25ML BOOSTER VACCINE 2021-08-23 00:00:00 Completed [facility] SARS-COV-2 COVID-19 MODERNA 0.25ML BOOSTER VACCINE 2021-08-23 00:00:00 Completed [facility] SARS-COV-2 COVID-19 MODERNA 0.25ML BOOSTER VACCINE 2021-08-23 00:00:00 Completed [facility] SARS-COV-2 COVID-19 MODERNA 0.25ML BOOSTER VACCINE 2021-08-23 00:00:00 Completed [facility] SARS-COV-2 COVID-19 MODERNA 0.25ML BOOSTER VACCINE 2021-08-23 00:00:00 Completed [facility] SARS-COV-2 COVID-19 MODERNA 0.25ML BOOSTER VACCINE 2021-08-23 00:00:00 Completed [facility] SARS-COV-2 COVID-19 MODERNA 0.25ML BOOSTER VACCINE 2021-08-23 00:00:00 Completed [facility] SARS-COV-2 COVID-19 MODERNA 0.25ML BOOSTER VACCINE 2021-08-23 00:00:00 Completed [facility] SARS-COV-2 COVID-19 MODERNA 0.25ML BOOSTER VACCINE 2021-08-23 00:00:00 Completed [facility] SARS-COV-2 COVID-19 MODERNA 0.25ML BOOSTER VACCINE 2021-08-23 00:00:00 Completed [facility] SARS-COV-2 COVID-19 MODERNA 0.25ML BOOSTER VACCINE 2021-08-23 00:00:00 Completed [facility] SARS-COV-2 COVID-19 MODERNA 0.25ML BOOSTER VACCINE 2021-08-23 00:00:00 Completed [facility] Influenza Virus Vaccine 2021-07-05 00:00:00 Completed [facility] Influenza Virus Vaccine 2021-07-05 00:00:00 Completed [facility] Influenza Virus Vaccine 2021-07-05 00:00:00 Completed [facility] Influenza Virus Vaccine 2021-07-05 00:00:00 Completed [facility] Influenza Virus Vaccine 2021-07-05 00:00:00 Completed [facility] Influenza Virus Vaccine 2021-07-05 00:00:00 Completed [facility] Influenza Virus Vaccine 2021-07-05 00:00:00 Completed [facility] Influenza Virus Vaccine 2021-07-05 00:00:00 Completed [facility] Influenza Virus Vaccine 2021-07-05 00:00:00 Completed [facility] Influenza Virus Vaccine 2021-07-05 00:00:00 Completed [facility] Influenza Virus Vaccine 2021-07-05 00:00:00 Completed [facility] Influenza Virus Vaccine 2021-07-05 00:00:00 Completed [facility] Influenza Virus Vaccine 2021-07-05 00:00:00 Completed [facility] Influenza Virus Vaccine 2021-07-05 00:00:00 Completed [facility] Influenza Virus Vaccine 2021-07-05 00:00:00 Completed [facility] Influenza Virus Vaccine 2021-07-05 00:00:00 Completed [facility] Influenza Virus Vaccine 2021-07-05 00:00:00 Completed [facility] SARS-COV-2 COVID-19 MODERNA 12+ YRS VACCINE 2021-02-19 00:00:00 Completed [facility] SARS-COV-2 COVID-19 MODERNA 12+ YRS VACCINE 2021-02-19 00:00:00 Completed [facility] SARS-COV-2 COVID-19 MODERNA 12+ YRS VACCINE 2021-02-19 00:00:00 Completed [facility] SARS-COV-2 COVID-19 MODERNA 12+ YRS VACCINE 2021-02-19 00:00:00 Completed [facility] SARS-COV-2 COVID-19 MODERNA 12+ YRS VACCINE 2021-02-19 00:00:00 Completed [facility] SARS-COV-2 COVID-19 MODERNA 12+ YRS VACCINE 2021-02-19 00:00:00 Completed [facility] SARS-COV-2 COVID-19 MODERNA 12+ YRS VACCINE 2021-02-19 00:00:00 Completed [facility] SARS-COV-2 COVID-19 MODERNA 12+ YRS VACCINE 2021-02-19 00:00:00 Completed [facility] SARS-COV-2 COVID-19 MODERNA 12+ YRS VACCINE 2021-02-19 00:00:00 Completed [facility] SARS-COV-2 COVID-19 MODERNA 12+ YRS VACCINE 2021-02-19 00:00:00 Completed [facility] SARS-COV-2 COVID-19 MODERNA 12+ YRS VACCINE 2021-02-19 00:00:00 Completed [facility] SARS-COV-2 COVID-19 MODERNA 12+ YRS VACCINE 2021-02-19 00:00:00 Completed [facility] SARS-COV-2 COVID-19 MODERNA 12+ YRS VACCINE 2021-02-19 00:00:00 Completed [facility] SARS-COV-2 COVID-19 MODERNA 12+ YRS VACCINE 2021-02-19 00:00:00 Completed [facility] SARS-COV-2 COVID-19 MODERNA 12+ YRS VACCINE 2021-02-19 00:00:00 Completed [facility] SARS-COV-2 COVID-19 MODERNA 12+ YRS VACCINE 2021-02-19 00:00:00 Completed [facility] SARS-COV-2 COVID-19 MODERNA 12+ YRS VACCINE 2021-02-19 00:00:00 Completed [facility] SARS-COV-2 COVID-19 MODERNA 12+ YRS VACCINE 2020-10-06 00:00:00 Completed [facility] SARS-COV-2 COVID-19 MODERNA 12+ YRS VACCINE 2020-10-06 00:00:00 Completed [facility] SARS-COV-2 COVID-19 MODERNA 12+ YRS VACCINE 2020-10-06 00:00:00 Completed [facility] SARS-COV-2 COVID-19 MODERNA 12+ YRS VACCINE 2020-10-06 00:00:00 Completed [facility] SARS-COV-2 COVID-19 MODERNA 12+ YRS VACCINE 2020-10-06 00:00:00 Completed [facility] SARS-COV-2 COVID-19 MODERNA 12+ YRS VACCINE 2020-10-06 00:00:00 Completed [facility] SARS-COV-2 COVID-19 MODERNA 12+ YRS VACCINE 2020-10-06 00:00:00 Completed [facility] SARS-COV-2 COVID-19 MODERNA 12+ YRS VACCINE 2020-10-06 00:00:00 Completed [facility] SARS-COV-2 COVID-19 MODERNA 12+ YRS VACCINE 2020-10-06 00:00:00 Completed [facility] SARS-COV-2 COVID-19 MODERNA 12+ YRS VACCINE 2020-10-06 00:00:00 Completed [facility] SARS-COV-2 COVID-19 MODERNA 12+ YRS VACCINE 2020-10-06 00:00:00 Completed [facility] SARS-COV-2 COVID-19 MODERNA 12+ YRS VACCINE 2020-10-06 00:00:00 Completed [facility] SARS-COV-2 COVID-19 MODERNA 12+ YRS VACCINE 2020-10-06 00:00:00 Completed [facility] SARS-COV-2 COVID-19 MODERNA 12+ YRS VACCINE 2020-10-06 00:00:00 Completed [facility] SARS-COV-2 COVID-19 MODERNA 12+ YRS VACCINE 2020-10-06 00:00:00 Completed [facility] SARS-COV-2 COVID-19 MODERNA 12+ YRS VACCINE 2020-10-06 00:00:00 Completed [facility] SARS-COV-2 COVID-19 MODERNA 12+ YRS VACCINE 2020-10-06 00:00:00 Completed [facility] TDAP 2020-07-13 00:00:00 Completed [facility] TDAP 2020-07-13 00:00:00 Completed [facility] TDAP 2020-07-13 00:00:00 Completed [facility] TDAP 2020-07-13 00:00:00 Completed [facility] TDAP 2020-07-13 00:00:00 Completed [facility] TDAP 2020-07-13 00:00:00 Completed [facility] TDAP 2020-07-13 00:00:00 Completed [facility] TDAP 2020-07-13 00:00:00 Completed [facility] TDAP 2020-07-13 00:00:00 Completed [facility] TDAP 2020-07-13 00:00:00 Completed [facility] TDAP 2020-07-13 00:00:00 Completed [facility] TDAP 2020-07-13 00:00:00 Completed [facility] TDAP 2020-07-13 00:00:00 Completed [facility] TDAP 2020-07-13 00:00:00 Completed [facility] TDAP 2020-07-13 00:00:00 Completed [facility] TDAP 2020-07-13 00:00:00 Completed [facility] TDAP 2020-07-13 00:00:00 Completed [facility] Influenza Virus Vaccine (3+ yrs) 2018-06-14 00:00:00 Completed [facility] Influenza Virus Vaccine (3+ yrs) 2018-06-14 00:00:00 Completed [facility] Influenza Virus Vaccine (3+ yrs) 2018-06-14 00:00:00 Completed [facility] Influenza Virus Vaccine (3+ yrs) 2018-06-14 00:00:00 Completed [facility] Influenza Virus Vaccine (3+ yrs) 2018-06-14 00:00:00 Completed [facility] Influenza Virus Vaccine (3+ yrs) 2018-06-14 00:00:00 Completed [facility] Influenza Virus Vaccine (3+ yrs) 2018-06-14 00:00:00 Completed [facility] Influenza Virus Vaccine (3+ yrs) 2018-06-14 00:00:00 Completed [facility] Influenza Virus Vaccine (3+ yrs) 2018-06-14 00:00:00 Completed [facility] Influenza Virus Vaccine (3+ yrs) 2018-06-14 00:00:00 Completed [facility] Influenza Virus Vaccine (3+ yrs) 2018-06-14 00:00:00 Completed [facility] Influenza Virus Vaccine (3+ yrs) 2018-06-14 00:00:00 Completed [facility] Influenza Virus Vaccine (3+ yrs) 2018-06-14 00:00:00 Completed [facility] Influenza Virus Vaccine (3+ yrs) 2018-06-14 00:00:00 Completed [facility] Influenza Virus Vaccine (3+ yrs) 2018-06-14 00:00:00 Completed [facility] Influenza Virus Vaccine (3+ yrs) 2018-06-14 00:00:00 Completed [facility] Influenza Virus Vaccine (3+ yrs) 2018-06-14 00:00:00 Completed [facility] Influenza Virus Vaccine Unknown Completed [facility] TDAP Unknown Completed [facility] Influenza Virus Vaccine (3+ yrs) Unknown Completed [facility] SARS-COV-2 COVID-19 MODERNA 12+ YRS VACCINE Unknown Completed [facility] SARS-COV-2 COVID-19 MODERNA 12+ YRS VACCINE Unknown Completed [facility] SARS-COV-2 COVID-19 MODERNA 0.25ML BOOSTER VACCINE Unknown Completed [facility] Influenza Virus Vaccine Unknown Completed [facility] TDAP Unknown Completed [facility] Influenza Virus Vaccine (3+ yrs) Unknown Completed [facility] SARS-COV-2 COVID-19 MODERNA 12+ YRS VACCINE Unknown Completed [facility] SARS-COV-2 COVID-19 MODERNA 12+ YRS VACCINE Unknown Completed [facility] SARS-COV-2 COVID-19 MODERNA 0.25ML BOOSTER VACCINE Unknown Completed [facility] Influenza Virus Vaccine Unknown Completed [facility] TDAP Unknown Completed [facility] Influenza Virus Vaccine (3+ yrs) Unknown Completed [facility] SARS-COV-2 COVID-19 MODERNA 12+ YRS VACCINE Unknown Completed [facility] SARS-COV-2 COVID-19 MODERNA 12+ YRS VACCINE Unknown Completed [facility] SARS-COV-2 COVID-19 MODERNA 0.25ML BOOSTER VACCINE Unknown Completed [facility] Vital Signs Vital Name Observation Time Observation Value Comments S ource Systolic blood pressure 2023-05-15 16:38:00 120 mm[Hg] [facility] Diastolic blood pressure 2023-05-15 16:38:00 77 mm[Hg] [facility] Heart rate 2023-05-15 16:38:00 77 /min [facility] Body height 2023-05-15 16:38:00 177.8 cm [facility] Body weight 2023-05-15 16:38:00 127.461 kg [facility] BMI 2023-05-15 16:38:00 40.32 kg/m2 [facility] Systolic blood pressure 2022-11-08 13:48:00 127 mm[Hg] [facility] Diastolic blood pressure 2022-11-08 13:48:00 80 mm[Hg] [facility] Heart rate 2022-11-08 13:48:00 80 /min [facility] Body height 2022-11-08 13:48:00 177.8 cm [facility] Body weight 2022-11-08 13:48:00 123.378 kg [facility] BMI 2022-11-08 13:48:00 39.03 kg/m2 [facility] Systolic blood pressure 2022-05-11 19:42:00 120 mm[Hg] [facility] Diastolic blood pressure 2022-05-11 19:42:00 77 mm[Hg] [facility] Heart rate 2022-05-11 19:42:00 88 /min Unive [facility] Body height 2022-05-11 19:42:00 177.8 cm [facility] Body weight 2022-05-11 19:42:00 123.378 kg [facility] BMI 2022-05-11 19:42:00 39.03 kg/m2 [facility] Systolic blood pressure 2022-03-29 15:25:00 132 mm[Hg] [facility] Diastolic blood pressure 2022-03-29 15:25:00 81 mm[Hg] [facility] Heart rate 2022-03-29 15:25:00 92 /min Unive [facility] Body temperature 2022-03-29 15:25:00 36.72 Radha [facility] Body height 2022-03-29 15:25:00 177.8 cm [facility] Body weight 2022-03-29 15:25:00 120.475 kg [facility] BMI 2022-03-29 15:25:00 38.11 kg/m2 [facility] Oxygen saturation in Arterial blood by Pulse oximetry 2022-03-29 15:25:00 98 /min [facility] Systolic blood pressure 2022-02-28 13:11:00 115 mm[Hg] [facility] Diastolic blood pressure 2022-02-28 13:11:00 78 mm[Hg] [facility] Heart rate 2022-02-28 13:11:00 86 /min [facility] Body temperature 2022-02-28 13:11:00 36.61 Radha [facility] Body height 2022-02-28 13:11:00 177.8 cm [facility] Body weight 2022-02-28 13:11:00 117.799 kg [facility] BMI 2022-02-28 13:11:00 37.26 kg/m2 [facility] Oxygen saturation in Arterial blood by Pulse oximetry 2022-02-28 13:11:00 96 /min [facility] Procedures Procedure Date / Time Performed Performing Clinician Source POCT HEMOGLOBIN A1C TEST 2023-05-15 00:00:00 Jb Hurley [facility] ASSIGNMENT OF BENEFITS 2022-11-08 13:42:21 Docto r Unassigned, [place] [facility] INSURANCE CORRESPONDENCE 2022-03-15 05:01:00 Doc tor Unassigned, [place] [facility] THYROID STIMULATING HORMONE 2022-02-28 13:45:00 Faby Buenrostro [facility] TESTOSTERONE 2022-02-28 13:45:00 Faby [facility]enrostro [facility] GLYCOSYLATED HEMOGLOBIN (A1C) 2022-02-28 13:45:00 Faby Buenrostro [facility] Encounters Start Date/Time End Date/Time Encounter Type Admission Type Attending Clinicians Care Facility Care Department Encounter ID Source 2023-05-15 10:30:00 2023-05-15 10:58:37 Outpatient R JB FLORES [facility] [id number] [facility] 2023-05-15 10:30:00 2023-05-15 10:58:37 Office Visit Jb Flores [facility] [place] 1.2.840.114 350.1.13.10 4.2.7.2.[id number] [facility] 2023-05-12 09:30:00 2023-05-12 09:30:00 Outpatient Meño CRUZMADISON JB [facility] [id number] [facility] 2023-02-15 08:30:00 2023-02-15 08:30:00 Outpatient Meño RIN BARON LORAINERIN Colón [facility] [id number] [facility] 2022-11-08 09:15:00 2022-11-08 09:45:00 Office Visit Seanmadison [facility] 1.840.114 350.1.13.10 4.2.7.2.[id number] [facility] 2022-11-08 09:00:00 2022-11-08 09:15:00 Spot Sprayer Visit Lab, Agapito - Valentín Cruzmadison [facility] 1.840.114 350.1.13.10 4.2.7.2.[id number] [facility] 2022-11-08 09:00:00 2022-11-08 09:00:00 Outpatient JB JHA [facility] [id number] [facility] 2022-11-08 00:00:00 2022-11-08 00:00:00 Orders Only Doctor Unassigned, [place] [facility] 1.840.114 350.1.13.10 4.2.7.2.[id number] [facility] 2022-10-11 00:00:00 2022-10-11 00:00:00 Telephone Jesica Shields 1.840.114 350.1.13.10 4.2.7.2.[id number] [facility] 2022-05-23 08:00:00 2022-05-23 08:00:00 Outpatient JB JHA [facility] [id number] [facility] 2022-05-11 13:45:00 2022-05-11 14:00:00 Office Visit Jb Flores [facility] [place] 1.84.114 350.1.13.10 4.2.7.2.[id number] [facility] 2022-05-11 13:45:00 2022-05-11 13:59:26 Outpatient R JB FLORES [facility] [id number] [facility] 2022-04-19 00:00:00 2022-04-19 00:00:00 Telephone Jb Flores [facility] [place] 1.84.114 350.1.13.10 4.2.7.2.[id number] [facility] 2022-04-18 00:00:00 2022-04-18 00:00:00 Telephone Jb Flores [facility] [place] 1.84.114 350.1.13.10 4.2.7.2.[id number] [facility] 2022-03-29 10:30:00 2022-03-29 10:54:20 Outpatient R PORTER FABY [facility] [id number] [facility] 2022-03-29 10:30:00 2022-03-29 10:54:20 Office Visit Porter Faby [facility] [place] 1.84.114 350.1.13.10 4.2.7.2.[id number] [facility] 2022-03-15 00:00:00 2022-03-15 00:00:00 Orders Only Doctor Unassigned, [place] [facility] 1.114 350.1.13.10 4.2.7.2.[id number] [facility] 2022-03-14 00:00:00 2022-03-14 00:00:00 Telephone Jb Flores [facility] [place] 1.2.840.114 350.1.13.10 4.2.7.2.[id number] [facility] 2022-03-14 00:00:00 2022-03-14 00:00:00 Telephone Jb Flores [facility] [place]?[facility] 1.840.114 350.1.13.10 4.2.7.2.[id number] [facility] 2022-03-14 00:00:00 2022-03-14 00:00:00 Telephone Jb Flores [facility] [place]?[facility] 1..840.114 350.1.13.10 4.2.7.2.[id number] [facility] 2022-02-28 09:00:00 2022-02-28 09:15:00 Spot Sprayer Visit Lab, Agapito Buenrostro Faby [facility] [place] 1..840.114 350.1.13.10 4.2.7.2.[id number] [facility] 2022-02-28 09:00:00 2022-02-28 09:02:24 Spot Sprayer Visit Lab, Agapito Buenrostro [facility] [place]?[facility] 1.2840.114 350.1.13.10 4.2.7.2.[id number] [facility] 2022-02-28 09:00:00 2022-02-28 09:00:00 Outpatient FABY BYRNES [facility] [id number] [facility] 2022-02-28 08:30:00 2022-02-28 08:39:16 Outpatient R PORTER FABY [facility] [id number] [facility] 2022-02-28 08:30:00 2022-02-28 08:39:16 Office Visit AracelyFaby kapoor [facility] [place] 1..840.114 350.1.13.10 4.2.7.2.[id number] [facility] 2022-02-11 10:30:00 2022-02-11 10:30:00 Outpatient R PORTER FABY [facility] [id number] [facility] 2021-12-15 10:30:00 2021-12-15 10:30:00 Outpatient R PORTER FABY [facility] [id number] [facility] 2021 00:00:00 2021 00:00:00 [facility] [place] 1..840.114 350.1.13.10 4.2.7.2.[id number] [facility] 2021-11-24 00:00:00 2021-11-24 00:00:00 Orders Only Doctor Unassigned, [place] [facility] 1..840.114 350.1.13.10 4.2.7.2.[id number] [facility] 2021-11-22 00:00:00 2021-11-22 00:00:00 Telephone AracelyFaby kapoor [facility] [place] 1..840.114 350.1.13.10 4.2.7.2.[id number] [facility] 2021-11-17 16:00:00 2021-11-17 16:16:49 Outpatient R JB FLORES [facility] [id number] [facility] 2021-11-17 16:00:00 2021-11-17 16:15:00 Office Visit Jb Flores [facility] 1.2.840.114 350.1.13.10 4.2.7.2.[id number] [facility] 2021-11-17 16:00:00 2021-11-17 16:00:00 Outpatient R JB FLORES [facility] [id number] [facility] 2021-11-10 11:00:00 2021-11-10 11:15:00 Spot Sprayer Visit Lab, Agapito [facility] 1.2.840.114 350.1.13.10 4.2.7.2.[id number] [facility] 2021-11-10 09:30:00 2021-11-10 09:53:46 Outpatient R FABY BUENROSTRO [facility] [id number] [facility] 2021-11-10 09:30:00 2021-11-10 09:53:46 Office Visit Faby Buenrostro [facility] 1.2.840.114 350.1.13.10 4.2.7.2.[id number] [facility] 2021-11-10 09:30:00 2021-11-10 09:30:00 Outpatient R ARACELYFABY Kapoor [facility] [id number] [facility] 2021-10-13 09:00:00 2021-10-13 09:00:00 Outpatient R RIN BARON YU [facility] [id number] [facility] 2021-10-13 09:00:00 2021-10-13 09:00:00 Outpatient R RIN BARON YU [facility] [id number] [facility] 2021-10-04 10:00:00 2021-10-04 10:00:00 Outpatient R CHONLUMA SIXTO [facility] [id number] [facility] 2021-09-29 10:15:00 2021-09-29 10:30:00 Spot Sprayer Visit Lab, Ang - Valentín Loraine [facility] 1.2.840.114 350.1.13.10 4.2.7.2.[id number] [facility] 2021-09-29 09:00:00 2021-09-29 10:09:08 Outpatient Meño RIN BARON YU [facility] [id number] [facility] 2021-09-29 09:00:00 2021-09-29 10:09:08 Office Visit LoraineRin [facility] 1..840.114 350.1.13.10 4.2.7.2.[id number] [facility] 2021-09-29 00:00:00 2021-09-29 00:00:00 Telephone Porter [facility] 1.2.840.114 350.1.13.10 4.2.7.2.[id number] [facility] 2021-09-06 09:00:00 2021-09-06 09:00:00 Outpatient FABY YBRNES [facility] [id number] [facility] 2021-08-23 08:00:00 2021-08-23 08:00:00 Outpatient FABY BYRNES [facility] [id number] [facility] 2021-08-16 00:00:00 2021-08-16 00:00:00 Pre Visit Outreach Miriam Worthington 1.2840.114 350.1.13.10 4.2.7.2.[id number] [facility] 2021-08-10 10:30:00 2021-08-10 10:40:22 Outpatient R ARACELYFABY Kapoor [facility] [id number] [facility] 2021-07-30 00:00:00 2021-07-30 00:00:00 Telephone AracelyFaby kapoor [facility] [place] 1.84.114 350.1.13.10 4.2.7.2.[id number] [facility] 2021-07-28 08:30:00 2021-07-28 08:45:00 Spot Sprayer Visit Lab, Agapito [facility] [place] 1.840.114 350.1.13.10 4.2.7.2.[id number] [facility] 2021-07-28 08:30:00 2021-07-28 08:30:00 Outpatient R ARACELYFABY Kapoor [facility] [id number] [facility] 2021-07-26 00:00:00 2021-07-26 00:00:00 Telephone [facility] [place] 1.84.114 350.1.13.10 4.2.7.2.[id number] [facility] 2021-07-13 10:30:00 2021-07-13 11:40:27 [facility] [place] 1.84.114 350.1.13.10 4.2.7.2.[id number] [facility] 2021-07-13 10:30:00 2021-07-13 11:40:27 Outpatient R PORTERKRYSTALIE [facility] [id number] [facility] 2021-07-13 10:30:00 2021-07-13 10:30:00 Outpatient Meño JESSICAFABY Kapoor [facility] [id number] [facility] Results Test Description Test Time Test Comments Results Result Co mments Source [facility] [id number] 16:57:00* Test Item Value Reference Range Interpretation Comme nts POCT HBA1C (test code = 4548-4) 6.0 % 4-6 [facility] [id number] 16:57:00* Test Item Value Reference Range Interpretation Comme nts POCT HBA1C (test code = 4548-4) 6.0 % 4-6 [facility]2022-09-19 23:30:24* Test Item Value Reference Range Interpretation Comme nts TESTOST (test code = 8340976264) 283.0 ng/dL 132-813 STEFAN (test code = STEFAN) Normal Ranges Adul t Female: ?6-77 ng/dLAdult Male <50 years: ? ?132-813 ng/dLAdult Male >50 years: ? ?72-623 ng/dL Females on Control Pills may have higher results. Obese patients may have lower results. Biotin has been reported to cause a negative bias, interpret results relative to patient's use of biotin. Lab Interpretation (test code = 66349-4) Normal [facility] [id number] 21:50:18 * Test Item Value Reference Range Interpretation Comme nts TSH (test code = 0077913785) See_Comment Biotin has been reported to cause a negative bias, interpret results relative to patient's use of biotin. [Automated message] The system which generated this result transmitted reference range: 0.45 - 4.70 mIU/L. The reference range was not used to interpret this result as normal/abnormal. Lab Interpretation (test code = 40883-7) Normal [facility] (A1C)2022-02-28 21:26:59* Test Item Value Reference Range Interpretation Comme nts HGB A1C (test code = 4548-4) 6.0 % 4-5.7 H STEFAN (test code = STEFAN) Reference RangesNormal: <5.7%Prediabetes: 5.7 - 6.4%Diabetes: > 6.5% Lab Interpretation (test code = 53391-2) Abnormal [facility]
[2023-07-01] MEDS ORDERED: PROMETHAZINE 25 MG TABLET ONE (23:46)
[2023-07-02 00:09] LABS: SARS-CoV-2 Antigen Rapid Res Negative (Negative)
--- NOTE | 2023-07-02 01:07 | ER ---
Nurse's Notes [facility] Name: Chidi Allen Age: 37 yrs Sex: Male : 1985 Arrival Date: 07/01/2023 Time: 23:24 Bed 6 Private MD: Diagnosis: Viral infection, unspecified Presentation: 07/01 23:38 Chief complaint: Patient states: I started having flu like symptoms on Monday and am jb4 not feeling any better. Coronavirus screen: At this time, the client does not indicate any symptoms associated with coronavirus-19. Ebola Screen: No symptoms or risks identified at this time. Initial Sepsis Screen: Does the patient meet any 2 criteria? No. Patient's initial sepsis screen is negative. Does the patient have a suspected source of infection? No. Patient's initial sepsis screen is negative. Risk Assessment: Do you want to hurt yourself or someone else? Patient reports no desire to harm self or others. Onset of symptoms was June 28, 2023. Transition of care: patient was not received from another setting of care. 23:38 Method Of Arrival: Wheelchair jb4 23:38 Acuity: CHERRIE 4 jb4 Historical: - Allergies: 23:40 PENICILLINS; jb4 - Home Meds: 23:40 Allopurinol Oral [Active]; Insulin: Regular Sub-Q as needed [Active]; jb4 - PMHx: 23:40 ADD/ADHD; Anxiety; Gout; jb4 - Immunization history:: Adult Immunizations up to date. Screenin:37 [facility] ED Fall Risk Assessment (Adult) History of falling in the last 3 months, tm6 including since admission No falls in past 3 months (0 pts). Abuse screen: Denies threats or abuse. Denies injuries from another. Abuse screen:. Nutritional screening: No deficits noted. Tuberculosis screening: No symptoms or risk factors identified. Assessment: 23:37 General: Appears uncomfortable, Behavior is calm, cooperative. Pain: Complains of pain tm6 in back, right arm and left arm Quality of pain is described as aching. Neuro: Level of Consciousness is awake, alert, obeys commands, Oriented to person, place, time, situation, Reports dizziness. Cardiovascular: Capillary refill < 3 seconds Patient's skin is warm and dry. Respiratory: Airway is patent Respiratory effort is even, unlabored, Respiratory pattern is regular, symmetrical. GI: Reports nausea, vomiting. : No signs and/or symptoms were reported regarding the genitourinary system. EENT: No signs and/or symptoms were reported regarding the EENT system. Derm: No signs and/or symptoms reported regarding the dermatologic system. Musculoskeletal: No signs and/or symptoms reported regarding the musculoskeletal system. 07/02 00:21 Reassessment: Patient appears in no apparent distress at this time. tm6 01:11 Reassessment: Patient appears in no apparent distress at this time. No changes from tm6 previously documented assessment. Vital Signs: 07/01 23:38 BP 118 / 79; Pulse 79; Resp 16; Temp 98.3(O); Pulse Ox 99% on R/A; Weight 127.01 kg jb4 (R); Height 5 ft. 11 in. (R); Pain 8/10; 07/02 00:20 BP 124 / 81; Pulse 79; Pulse Ox 98% on R/A; tm6 01:10 BP 127 / 82; Pulse 61; Pulse Ox 100% on R/A; tm6 07/01 23:38 Body Mass Index 39.05 (127.01 kg, 180.34 cm) jb4 07/01 23:38 Pain Scale: Adult 4 ED Course: 07/01 23:30 Patient arrived in ED. gm2 23:32 Huan Watts DO is Attending Physician. ms3 23:32 Shira More, GAS APPLIANCE REPAIRER-C is PHCP. snw 23:32 Shira More GAS APPLIANCE REPAIRER-C is PHCP. snw 23:37 Patient has correct armband on for positive identification. Bed in low position. Call tm6 light in reach. Side rails up X 1. Provided Education on: plan of care. Client placed on continuous cardiac and pulse oximetry monitoring. NIBP monitoring applied. Door closed. Noise minimized. 23:37 No provider procedures requiring assistance completed. tm6 23:40 Triage completed. jb4 23:40 Arm band placed on right wrist. jb4 23:44 SARS RAPID Sent. tm6 23:44 Flu Sent. tm6 23:58 Flu Sent. tm6 23:58 SARS RAPID Sent. tm6 07/02 01:19 Patient did not have IV access during this emergency room visit. tm6 Administered Medications: 07/01 23:48 Drug: Promethazine PO 25 mg PO once Route: PO; tm6 Medication: 23:37 VIS not applicable for this client. tm6 Outcome: 07/02 01:07 Discharge ordered by . snlauri 01:19 Discharged to home ambulatory, with family, tm6 :19 Condition: stable 01:19 Discharge instructions given to patient, family, Instructed on discharge instructions, follow up and referral plans. medication usage, Demonstrated understanding of instructions, follow-up care, medications, Prescriptions given X 1, :19 Patient left the ED. tm6 Signatures: Shira More, GAS APPLIANCE REPAIRER-C GAS APPLIANCE REPAIRER-Csnw Rosendo Russell, RN RN jb4 Huan Watts DO DO ms3 Justine Marti gm2 Archana Lucas, RN RN tm6
--- NOTE | 2023-07-02 01:07 | EDPHYS ---
Physician Documentation [facility] Name: Chidi Allen Age: 37 yrs Sex: Male : 1985 Arrival Date: 07/01/2023 Time: 23:24 Bed 6 Private MD: ED Physician Huan Watts HPI: 07/01 23:38 This 37 yrs old Male presents to ER via Unassigned with complaints of Flu snw Symptoms, Dizziness. 23:38 Onset: The symptoms/episode began/occurred suddenly, 4 day(s) ago, and became snw persistent. The patient has not experienced similar symptoms in the past, but family has similar symptoms, "Kids". The patient has been recently seen by a physician: the patient's primary care provider, check up. hx of gout, cholecystectomy, allergic to PCN. Historical: - Allergies: 23:40 PENICILLINS; jb4 - Home Meds: 23:40 Allopurinol Oral [Active]; Insulin: Regular Sub-Q as needed [Active]; jb4 - PMHx: 23:40 ADD/ADHD; Anxiety; Gout; jb4 - Immunization history:: Adult Immunizations up to date. ROS: 23:37 Eyes: Negative for injury, pain, redness, and discharge, ENT: Negative for injury, snw pain, and discharge, Neck: Negative for injury, pain, and swelling, Cardiovascular: Negative for chest pain, palpitations, and edema, 23:37 Abdomen/GI: Negative for abdominal pain, nausea, vomiting, diarrhea, and constipation, Back: Negative for injury and pain, : Negative for injury, bleeding, discharge, and swelling, MS/Extremity: Negative for injury and deformity, Skin: Negative for injury, rash, and discoloration, 23:37 Constitutional: Positive for body aches, chills, fatigue, fever, malaise, 23:37 Respiratory: Positive for cough, 23:37 Neuro: Positive for dizziness, Exam: 23:36 Head/Face: Normocephalic, atraumatic. Eyes: Pupils equal round and reactive to light, snw extra-ocular motions intact. Lids and lashes normal. Conjunctiva and sclera are non-icteric and not injected. Cornea within normal limits. Periorbital areas with no swelling, redness, or edema. ENT: Nares patent. No nasal discharge, no septal abnormalities noted. Tympanic membranes are normal and external auditory canals are clear. Oropharynx with no redness, swelling, or masses, exudates, or evidence of obstruction, uvula midline. Mucous membranes moist. Neck: Trachea midline, no thyromegaly or masses palpated, and no cervical lymphadenopathy. Supple, full range of motion without nuchal rigidity, or vertebral point tenderness. No Meningismus. Chest/axilla: Normal chest wall appearance and motion. Nontender with no deformity. No lesions are appreciated. Cardiovascular: Regular rate and rhythm with a normal S1 and S2. No gallops, murmurs, or rubs. Normal PMI, no JVD. No pulse deficits. 23:36 Abdomen/GI: Soft, non-tender, with normal bowel sounds. No distension or tympany. No guarding or rebound. No evidence of tenderness throughout. Back: No spinal tenderness. No costovertebral tenderness. Full range of motion. Skin: Warm, dry with normal turgor. Normal color with no rashes, no lesions, and no evidence of cellulitis. MS/ Extremity: Pulses equal, no cyanosis. Neurovascular intact. Full, normal range of motion. Neuro: Awake and alert, GCS 15, oriented to person, place, time, and situation. Cranial nerves II-XII grossly intact. Motor strength 5/5 in all extremities. Sensory grossly intact. Cerebellar exam normal. Normal gait. Psych: Awake, alert, with orientation to person, place and time. Behavior, mood, and affect are within normal limits. 23:36 Constitutional: The patient appears alert, awake, anxious, obese, uncomfortable, 23:36 Respiratory: the patient does not display signs of respiratory distress, Respirations: shallow respirations, tachypnea, Breath sounds: bronchial sounds, that are mild, are heard diffusely, wheezing: expiratory that is mild, is scattered, Vital Signs: 23:38 BP 118 / 79; Pulse 79; Resp 16; Temp 98.3(O); Pulse Ox 99% on R/A; Weight 127.01 kg jb4 (R); Height 5 ft. 11 in. (R); Pain 8/10; 07/02 00:20 BP 124 / 81; Pulse 79; Pulse Ox 98% on R/A; tm6 01:10 BP 127 / 82; Pulse 61; Pulse Ox 100% on R/A; tm6 07/01 23:38 Body Mass Index 39.05 (127.01 kg, 180.34 cm) jb4 07/01 23:38 Pain Scale: Adult jb4 MDM: 07/01 23:32 Patient medically screened. snw 07/02 01:05 Differential Diagnosis flu, covid, viral illness. Data reviewed: vital signs, nurses snw notes, lab test result(s), EKG. I considered the following discharge prescriptions or medication management in the emergency department Medications were administered in the Emergency Department. See MAR. Counseling: I had a detailed discussion with the patient and/or guardian regarding the historical points, exam findings, and any diagnostic results supporting the discharge/admit diagnosis, the presence of at least one elevated blood pressure reading (>120/80) during this emergency department visit, lab results, the need for outpatient follow up, for definitive care, to return to the emergency department if symptoms worsen or persist or if there are any questions or concerns that arise at home. 07/01 23:36 Order name: Flu; Complete Time: 01:03 snw 07/01 23:36 Order name: SARS RAPID; Complete Time: 00:09 snw 07/02 00:49 Order name: EKG; Complete Time: 00:49 snw 07/02 00:49 Order name: EKG - Nurse/Tech; Complete Time: : snw EC:04 Rate is 70 beats/min. Rhythm is regular. QRS [place] is Normal. IA interval is normal. QRS snw interval is normal. Clinical impression: NSR w/ Non-specific ST/T Changes. Administered Medications: 07/01 23:48 Drug: Promethazine PO 25 mg PO once Route: PO; tm6 Disposition: 07/02 03:46 I was immediately available on-site in the Emergency Department for consultation in the ms3 care of the patient. Disposition Summary: 07/02/23 01:07 Discharge Ordered Notes: Location: Home snw Condition: Stable snw Diagnosis - Viral infection, unspecified snw Followup: snw - With: Emergency Department - When: As needed - Reason: Worsening of condition Followup: snw - With: Private Physician - When: 2 - 3 days - Reason: Recheck today's complaints, Continuance of care, Re-evaluation by your physician Discharge Instructions: - Discharge Summary Sheet snw - Viral Respiratory Infection snw - Rehydration, Adult snw Forms: - Work release form snw - Medication Reconciliation Form snw - Thank You Letter snw - Antibiotic Education snw - Prescription Opioid Use snw - Patient Portal Instructions snw - Leadership Thank You Letter snw Prescriptions: - promethazine 25 mg Oral Tablet - take 1 tablet ORAL route every 6 hours As needed; 20 tablet; Refills: 0, snw Product Selection Permitted Signatures: Dispatcher [employer] EDMS Shira More, CROP PULLER-C CROP PULLER-Csnw Rosendo Russell, RN RN jb4 Huan Watts DO DO ms3 Archana Lucas, RN RN tm6
[2023-07-02 03:03] VITALS: BP 127/82; TEMP 98.3; O2SAT 100
--- NOTE | 2023-07-03 16:55 | EKG ---
Test Date: 2023-07-02 Test Time: 00:59:37 Manager Group: [facility] MEASUREMENT RESULTS: Intervals: Rate: 70 MI: 148 QRSD: 86 QT: 412 QTc: 444 [place]: P: 51 MI: 148 QRS: 29 T: -2 INTERPRETIVE STATEMENTS: Normal sinus rhythm Normal ECG Compared to ECG 07/09/2021 09:44:47 T-wave abnormality no longer present Possible ischemia no longer present Electronically Signed On 07-03-23 16:51:54 BEAMING MACHINE OPERATOR by Gautam Flores
== END 2023-07-02 01:19 | disposition home or self-care (01) ==
LOC: ER 23:24
DX: B34.9 Viral infection, unspecified (principal); Z88.0 Allergy status to penicillin; Z11.52 Encounter for screening for COVID-19
CPT/HCPCS: 93005; 36415; 87804 ×2; 99284; 87811; Q0169